=== PATIENT | male | born 1945 | race Caucasian/White ===

== ENCOUNTER 2017-07-21 11:09 | Inpatient (IN) | payer OTHER, MEDICARE ==
[~2017-07-21] VITALS: Ht 177.8 cm; Wt 83.0 kg
[~2017-07-21 11:09] MED LIST: ECOT500T PO; OXYC-360 PO; ROBA750T3 PO
[2017-07-21 12:00] VITALS: BP 143/76; PULSE 95; RESP 16; TEMP 98.1; O2SAT 98
[2017-07-21 12:16] LABS: AUTOMATED NEUTROPHIL # 9.5 TH/MM3 (1.8-7.7); BASOPHIL # 0.1 TH/MM3 (0-0.2); BASOPHIL % 0.7 % (0.0-2.0); EOSINOPHIL # 0.2 TH/MM3 (0-0.4); EOSINOPHIL % 1.7 % (0.0-4.0); HEMATOCRIT 38.1 % (39.0-51.0); HEMOGLOBIN 13.5 GM/DL (13.0-17.0); LYMPH % 14.9 % (9.0-44.0); LYMPHOCYTE # 1.8 TH/MM3 (1.0-4.8); MEAN CELL VOLUME 86.1 FL (80.0-100.0); MEAN CORPUSCULAR HEMOGLOBIN 30.6 PG (27.0-34.0); MEAN CORPUSCULAR HGB CONC 35.5 % (32.0-36.0); MEAN PLATELET VOLUME 7.9 FL (7.0-11.0); MONO % 5.3 % (0.0-8.0); MONOCYTE # 0.6 TH/MM3 (0-0.9); NEUT % 77.4 % (16.0-70.0); PLATELET COUNT 329 TH/MM3 (150-450); RED BLOOD COUNT 4.43 MIL/MM3 (4.50-5.90); RED CELL DISTRIBUTION WIDTH 13.9 % (11.6-17.2); WHITE BLOOD COUNT 12.3 TH/MM3 (4.0-11.0)
[2017-07-21 12:20] LABS: BILIRUBIN, URINE NEG (NEG); BLOOD, URINE NEG (NEG); GLUCOSE,URINE NEG (NEG); KETONE, URINE NEG (NEG); NITRITE,URINE NEG (NEG); SQUAMOUS EPITHELIAL CELL URINE <1 /hpf (0-5); URINE COLOR LIGHT-YELLOW (YELLW/STRAW); URINE LEUKOCYTE ESTERASE NEG (NEG)
[2017-07-21 12:35] LABS: ALBUMIN 4.8 GM/DL (3.4-5.0); ALT (GPT) 15 U/L (12-78); AST (GOT) 15 U/L (15-37); BICARBONATE 30.4 MEQ/L (21.0-32.0); BLOOD UREA NITROGEN 5 MG/DL (7-18); CALCIUM 9.8 MG/DL (8.5-10.1); CHLORIDE 96 MEQ/L (98-107); CREATININE 0.94 MG/DL (0.60-1.30); GLOMERULAR FILTRATION RATE 79 ML/MIN (>89); GLUCOSE,RANDOM 110 MG/DL (74-106); SODIUM (NA) 135 MEQ/L (136-145)
[2017-07-21 12:37] LABS: ALKALINE PHOSPHATASE 71 U/L (45-117); TOTAL BILIRUBIN ADULT 0.4 MG/DL (0.2-1.0)
--- NOTE | 2017-07-21 12:41 | PD ---
HPI Chief Complaint: Psychiatric Symptoms Time Seen by Provider: 12:41 Travel History International Travel<30 days: No Contact w/Intl Traveler<30days: No Traveled to known affect area: No History of Present Illness HPI 71-year-old male since the emergency department under Shepherd act for psychiatric evaluation. Patient presented to the [facility] acutely psychotic, states he has not slept in the last week. He states that he has significant neck pain and has not taken his Suboxone for the last 2-3 days. He believes he is opiate withdrawal. Denies any chest or tightness. No difficulty breathing. No nausea , vomiting, diarrhea. States that he just wants to sleep and if he can't he will "end it all.." PFSH Past Medical History Arthritis: Yes Anxiety: Yes (PTSD) Cardiovascular Problems: Yes Coronary Artery Disease: Yes Diabetes: Yes Hypertension: Yes Past Surgical History Joint Replacement: Yes Social History Alcohol Use: No Tobacco Use: No Substance Use: No Allergies-Medications (Allergen,Severity, Reaction): Coded Allergies: Sulfa (Sulfonamide Antibiotics) (Unverified Allergy, Intermediate, RASH, ) Reported Meds & Prescriptions Reported Meds & Active Scripts Active Reported Oxycontin (Oxycodone HCl) 15 Mg Tab 15 Mg PO TID Aspirin EC (Aspirin) 325 Mg Tabdr 325 Mg PO DAILY Ascorbic Acid 500 Mg Tab 500 Mg PO DAILY Trazodone (Trazodone HCl) 100 Mg Tablet 100 Mg PO HS Glucophage (Metformin HCl) 1,000 Mg Tab 1,000 Mg PO BIDPC Lisinopril 20 Mg Tab 20 Mg PO DAILY Ketoconazole Topical 2% Cream 1 Applic TOPICAL BID Duloxetine DR (Duloxetine HCl) 60 Mg Capdr 60 Mg PO DAILY Diclofenac Topical 1% Gel 1 Applic TOPICAL QID Clonidine (Clonidine HCl) 0.2 Mg Tab 0.2 Mg PO BID Theratears Unit-Dose Opth Gel (Carboxymethylcellulose Sodium Opth Gel) 1% Gel 1 Drop EACH EYE Q4H PRN Artificial Tears Opth Drops (Polyvinyl Alcohol) 1.4% Soln 1-2 Drop EACH EYE PRN PRN Aripiprazole 10 Mg Tab 10 Mg PO DAILY Amlodipine-Benazepril 5-10 Mg Cap 1 Cap PO DAILY Review of Systems Except as stated in HPI: all other systems reviewed are Neg Physical Exam Narrative GENERAL: Well-nourished elderly male patient, in no acute distress. SKIN: Focused skin assessment warm/dry. HEAD: Atraumatic. Normocephalic. EYES: Pupils equal and round. No scleral icterus. No injection or drainage. ENT: No nasal bleeding or discharge. Mucous membranes pink and moist. NECK: Trachea midline. No JVD. CARDIOVASCULAR: Regular rate and rhythm. RESPIRATORY: No accessory muscle use. Clear to auscultation. Breath sounds equal bilaterally. GASTROINTESTINAL: Abdomen soft, non-tender, nondistended. Hepatic and splenic margins not palpable. MUSCULOSKELETAL: No obvious deformities. No clubbing. No cyanosis. No edema. NEUROLOGICAL: Awake and alert. No obvious cranial nerve deficits. Motor grossly within normal limits. Normal speech. PSYCHIATRIC: Patient with flat affect, moderately depressed. Tearful at times. Data Data Last Documented VS Vital Signs Date Time Temp Pulse Resp B/P (MAP) Pulse Ox O2 Delivery O2 Flow Rate FiO2 07/21/17 18:05 97 18 158/84 (108) 99 Room Air 07/21/17 12:00 98.1 Orders Orders Complete Blood Count With Diff (07/21/17 11:44) Comprehensive Metabolic Panel (07/21/17 11:44) Urinalysis - C+S If Indicated (07/21/17 11:44) Psych Screen (07/21/17 11:44) Drug Screen, Random Urine (07/21/17 11:44) Alcohol (Ethanol) (07/21/17 11:44) Salicylates (Aspirin) (07/21/17 11:44) Lorazepam (Ativan) (07/21/17 13:15) Diet Regular Basic (07/21/17 Dinner) Labs Laboratory Tests Test 07/21/17 11:45 White Blood Count 12.3 TH/MM3 Red Blood Count 4.43 MIL/MM3 Hemoglobin 13.5 GM/DL Hematocrit 38.1 % Mean Corpuscular Volume 86.1 FL Mean Corpuscular Hemoglobin 30.6 PG Mean Corpuscular Hemoglobin Concent 35.5 % Red Cell Distribution Width 13.9 % Platelet Count 329 TH/MM3 Mean Platelet Volume 7.9 FL Neutrophils (%) (Auto) 77.4 % Lymphocytes (%) (Auto) 14.9 % Monocytes (%) (Auto) 5.3 % Eosinophils (%) (Auto) 1.7 % Basophils (%) (Auto) 0.7 % Neutrophils # (Auto) 9.5 TH/MM3 Lymphocytes # (Auto) 1.8 TH/MM3 Monocytes # (Auto) 0.6 TH/MM3 Eosinophils # (Auto) 0.2 TH/MM3 Basophils # (Auto) 0.1 TH/MM3 CBC Comment DIFF FINAL Differential Comment Urine Color LIGHT-YELLOW Urine Turbidity CLEAR Urine pH 7.0 Urine Specific [place] 1.005 Urine Protein NEG mg/dL Urine Glucose (UA) NEG mg/dL Urine Ketones NEG mg/dL Urine Occult Blood NEG Urine Nitrite NEG Urine Bilirubin NEG Urine Urobilinogen LESS THAN 2.0 MG/DL Urine Leukocyte Esterase NEG Urine WBC LESS THAN 1 /hpf Urine Squamous Epithelial Cells <1 /hpf Microscopic Urinalysis Comment CULT NOT INDICATED Blood Urea Nitrogen 5 MG/DL Creatinine 0.94 MG/DL Random Glucose 110 MG/DL Total Protein 8.0 GM/DL Albumin 4.8 GM/DL Calcium Level 9.8 MG/DL Alkaline Phosphatase 71 U/L Aspartate Amino Transf (AST/SGOT) 15 U/L Alanine Aminotransferase (ALT/SGPT) 15 U/L Total Bilirubin 0.4 MG/DL Sodium Level 135 MEQ/L Potassium Level 3.6 MEQ/L Chloride Level 96 MEQ/L Carbon Dioxide Level 30.4 MEQ/L Anion Gap 9 MEQ/L Estimat Glomerular Filtration Rate 79 ML/MIN Salicylates Level 11.3 MG/DL Urine Opiates Screen NEG Urine Barbiturates Screen NEG Urine Amphetamines Screen NEG Urine Benzodiazepines Screen NEG Urine Cocaine Screen NEG Urine Cannabinoids Screen NEG Ethyl Alcohol Level LESS THAN 3 MG/DL MDM Medical Decision Making Medical Screen Exam Complete: Yes Emergency Medical Condition: Yes Medical Record Reviewed: Yes Differential Diagnosis Mood Disorder versus personality disorder versus adjustment reaction disorder Narrative Course 71-year-old male presented to emergency department under Shepherd act for psychiatric evaluation. Patient appears without distress. He verbalizes been unable to sleep and frustrations with this. [facility] is [facility] that [facility]. He does not denies suicidal ideations but he does not discussed the plan. Laboratory Tests Test 07/21/17 11:45 White Blood Count 12.3 TH/MM3 Red Blood Count 4.43 MIL/MM3 Hemoglobin 13.5 GM/DL Hematocrit 38.1 % Mean Corpuscular Volume 86.1 FL Mean Corpuscular Hemoglobin 30.6 PG Mean Corpuscular Hemoglobin Concent 35.5 % Red Cell Distribution Width 13.9 % Platelet Count 329 TH/MM3 Mean Platelet Volume 7.9 FL Neutrophils (%) (Auto) 77.4 % Lymphocytes (%) (Auto) 14.9 % Monocytes (%) (Auto) 5.3 % Eosinophils (%) (Auto) 1.7 % Basophils (%) (Auto) 0.7 % Neutrophils # (Auto) 9.5 TH/MM3 Lymphocytes # (Auto) 1.8 TH/MM3 Monocytes # (Auto) 0.6 TH/MM3 Eosinophils # (Auto) 0.2 TH/MM3 Basophils # (Auto) 0.1 TH/MM3 CBC Comment DIFF FINAL Differential Comment Urine Color LIGHT-YELLOW Urine Turbidity CLEAR Urine pH 7.0 Urine Specific [place] 1.005 Urine Protein NEG mg/dL Urine Glucose (UA) NEG mg/dL Urine Ketones NEG mg/dL Urine Occult Blood NEG Urine Nitrite NEG Urine Bilirubin NEG Urine Urobilinogen LESS THAN 2.0 MG/DL Urine Leukocyte Esterase NEG Urine WBC LESS THAN 1 /hpf Urine Squamous Epithelial Cells <1 /hpf Microscopic Urinalysis Comment CULT NOT INDICATED Blood Urea Nitrogen 5 MG/DL Creatinine 0.94 MG/DL Random Glucose 110 MG/DL Total Protein 8.0 GM/DL Albumin 4.8 GM/DL Calcium Level 9.8 MG/DL Alkaline Phosphatase 71 U/L Aspartate Amino Transf (AST/SGOT) 15 U/L Alanine Aminotransferase (ALT/SGPT) 15 U/L Total Bilirubin 0.4 MG/DL Sodium Level 135 MEQ/L Potassium Level 3.6 MEQ/L Chloride Level 96 MEQ/L Carbon Dioxide Level 30.4 MEQ/L Anion Gap 9 MEQ/L Estimat Glomerular Filtration Rate 79 ML/MIN Salicylates Level 11.3 MG/DL Urine Opiates Screen NEG Urine Barbiturates Screen NEG Urine Amphetamines Screen NEG Urine Benzodiazepines Screen NEG Urine Cocaine Screen NEG Urine Cannabinoids Screen NEG Ethyl Alcohol Level LESS THAN 3 MG/DL Lab work is reviewed. Patient is medically cleared to undergo psychiatric screening for further evaluation and disposition. Mental health screening discussed with the patient. Psychiatric screen ordered. Diagnosis Primary Impression: Adjustment disorder Qualified Codes: F43.23 - Adjustment disorder with mixed anxiety and depressed mood Condition: Stable Rosangela Tovar Jul 21, 2017 12:41
[2017-07-21] MEDS ORDERED: LORazepam 1 MG TAB PO ONE (13:15)
[2017-07-21] MEDS ORDERED: THER1GEL EACH EYE (13:16)
[2017-07-21] MEDS ORDERED: DULO1CAP3 PO (13:16)
[2017-07-21] MEDS ORDERED: POLY99.0 EACH EYE (13:16)
[2017-07-21] MEDS ORDERED: CLON0.2T PO (13:16)
[2017-07-21] MEDS ORDERED: ASCO500T PO (13:16)
[2017-07-21] MEDS ORDERED: LISI-515 PO (13:16)
[2017-07-21] MEDS ORDERED: ASPI325T33 PO (13:16)
[2017-07-21] MEDS ORDERED: DICL1GEL7 TOPICAL (13:16)
[2017-07-21] MEDS ORDERED: AMLO5CAP PO (13:16)
[2017-07-21] MEDS ORDERED: ARIP1TAB12 PO (13:16)
[2017-07-21] MEDS ORDERED: GLUC1000 PO (13:16)
[2017-07-21] MEDS ORDERED: TRAZ100T10 PO (13:16)
[2017-07-21] MEDS ORDERED: KETO2CRE TOPICAL (13:16)
[2017-07-21] MEDS ORDERED: OXYC15TA55 PO (13:28)
[2017-07-21 18:05] VITALS: BP 158/84; PULSE 97; RESP 18; O2SAT 99
[2017-07-21 22:03] VITALS: BP 143/73; PULSE 80; RESP 18; TEMP 98.3; O2SAT 98
[2017-07-21] MEDS ORDERED: diphenhydrAMINE HCL 50 MG CAP PO PRN (23:00)
[2017-07-21] MEDS ORDERED: LORazepam 0.5 MG TAB age > 65 yrs PO PRN (23:15)
[2017-07-21] MEDS ORDERED: diphenhydrAMINE HCL 50 MG/ML VIAL - HS PRN IM (23:15)
[2017-07-21] MEDS ORDERED: diphenhydrAMINE HCL 50 MG CAP - HS PRN PO (23:15)
[2017-07-21] MEDS ORDERED: traZODone HCL 50 MG TAB PO PRN (23:15)
[2017-07-21] MEDS ORDERED: LORazepam 2 MG/ML VIAL - age > 65 yrs IM PRN (23:15)
[2017-07-21] MEDS ORDERED: hydrOXYzine HCL 50 MG TAB PO PRN (23:15)
[2017-07-21] MEDS ORDERED: diphenhydrAMINE HCL 50 MG/ML VIAL IM PRN (23:15)
[2017-07-21] MEDS ORDERED: BENZTROPINE MESYLATE 1 MG TAB PO PRN (23:15)
[2017-07-21] MEDS ORDERED: BENZTROPINE MESYLATE 2 MG/2 ML VIAL IM PRN (23:15)
[2017-07-21] MEDS ORDERED: MAGNESIUM HYDROXIDE SUSP 30 ML CUP PO PRN (23:15)
[2017-07-21 23:35] VITALS: BP 164/89; PULSE 96; RESP 16; TEMP 98.1; O2SAT 97
[2017-07-22] MEDS: ACETAMINOPHEN 325 MG TAB PO PRN ×2 (04:54→15:47)
[2017-07-22 05:40] VITALS: BP 163/88; PULSE 86; RESP 20; TEMP 97.5; O2SAT 100
[2017-07-22 08:39] LABS: BICARBONATE 27.8 MEQ/L (21.0-32.0); BLOOD UREA NITROGEN 3 MG/DL (7-18); CALCIUM 9.8 MG/DL (8.5-10.1); CHLORIDE 97 MEQ/L (98-107); CREATININE 0.73 MG/DL (0.60-1.30); GLOMERULAR FILTRATION RATE 106 ML/MIN (>89); GLUCOSE,RANDOM 118 MG/DL (74-106); SODIUM (NA) 135 MEQ/L (136-145)
[2017-07-22 08:40] LABS: CHOLESTEROL 142 MG/DL (120-200); TRIGLYCERIDES 78 MG/DL (42-150)
[2017-07-22 08:42] LABS: CHOLESTEROL/ HDL RATIO 2.51 RATIO; HDL CHOLESTEROL 56.4 MG/DL (40.0-60.0); LDL CHOLESTEROL 70 MG/DL (0-99)
[2017-07-22] MEDS ORDERED: LISINOPRIL 10 MG TAB PO SCH (09:00)
[2017-07-22] MEDS ORDERED: LISINOPRIL 20 MG TAB PO SCH (09:00)
[2017-07-22] MEDS ORDERED: ASPIRIN EC 325 MG TABEC PO SCH (09:00)
[2017-07-22] MEDS: KETOCONAZOLE 2% CREAM 15 GM TOPICAL SCH (09:00)
[2017-07-22 09:30] VITALS: BP 177/91
[2017-07-22] MEDS: metFORMIN HCL 500 MG TAB PO SCH ×2 (09:34→17:42)
[2017-07-22] MEDS: amLODIPine BESYLATE 5 MG TAB PO SCH (09:34)
[2017-07-22] MEDS: cloNIDine HCL 0.2 MG TAB PO SCH ×2 (09:34→20:41)
[2017-07-22] MEDS: ASCORBIC ACID 500 MG TAB PO SCH (09:35)
[2017-07-22] MEDS: NICOTINE 21 MG/24 HR PATCH T-DERMAL SCH (09:39)
[2017-07-22] MEDS ORDERED: ACETAMINOPHEN 325 MG TAB PO PRN (13:45)
[2017-07-22] MEDS ORDERED: [UNRECOGNIZED DRUG - OTHER] EACH EYE PRN (13:45)
[2017-07-22] MEDS ORDERED: FLUMAZENIL 0.5 MG/5 ML VIAL IV PUSH PRN (13:45)
[2017-07-22] MEDS ORDERED: LORazepam 2 MG TAB PO PRN (13:45)
[2017-07-22] MEDS ORDERED: LORazepam 2 MG/ML VIAL IV PUSH PRN ×4 (13:45)
--- NOTE | 2017-07-22 14:24 | HHI.HP ---
Provisional Diagnosis Admission Date Jul 21, 2017 at 22:38 [place] I. Chronic PTSD after experience f 43.12, history alcohol abuse Certification of Person's Competence To Provide Express and Informed Consent I have personally examined Will No , a person being served at [facility] on, Jul 22, 2017 14:06. Express and informed consent means consent voluntarily given in writing, by a competent person, after sufficient explanation and disclosure of the subject matter involved to enable the person to make a knowing and willful decision without any element of force, fraud, deceit, duress, or other form of constraint or coercion. This person is 18 years of age or older, is not now known to be incompetent to consent to treatment with a guardian advocate, and does not have a health care surrogate or proxy currently making medical treatment decisions. I have found this person to be one of the following: [] Competent to provide express and informed consent, as defined above, for voluntary admission to this facility and is competent to provide express and informed consent for treatment. He/she has the consistent capacity to make well reasoned, willful, and knowing decisions concerning his or her medical or mental health treatment. The person fully and consistently understands the purpose of the admission for examination/placement and is fully capable of personally exercising all rights assured [place] [] Incompetent to provide express and informed consent to voluntary admission, and this is incompetent to provide express and informed consent to treatment. The person must be transferred to involuntary status and a petition for a guardian advocate filed with the Circuit Court. [xxx] Refusing to provide express and informed consent to voluntary admission but is competent to provide express and informed consent for treatment. The person must be discharged or transferred to involuntary status. Form shall be completed within 24 hours of a person's arrival at the receiving facility and filed in the clinical record of each person: 1. Admitted on a voluntary basis 2. Permitted to provide express and informed consent to his/her own treatment 3. Allowed to transfer from involuntary to voluntary status 4. Prior to permitting a person to consent to his or her own treatment after having been previously found incompetent to consent to treatment. 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 that document reviewed and agreed with stating presents to clinic floridly psychotic and agitated states he has not slept or eaten in one week. The states "I'm going to go home and take all my blood pressure pills so I can go into a coma" he reports that he was prescribed Suboxone by and outside non-[facility] provider. Last dose was Wednesdays . He is drinking 3-4 beers every day is expressing visual and auditory hallucinations states "he is seeing soldiers in the house" and believes "there is a virus running through his body" patient seen screened in the ED urine toxicology negative blood alcohol level negative. 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 He states the problem is she has a slept in over one week. He did not mention voices or visions to me. Did not mention his alcohol use. He is vague about dreams flashbacks or eversion behaviors. Is markedly perseverative intense is she is rapid and pressured. While we are speaking his sister are brought joined us her phone number [phone]. She states she is concerned about the multiplication of medications he is taking and the need to get some type of a residential place to help him detox stabilizes medications be kept safe. Patient states he lives in a [facility] That is 100% disabled. He states he has been in the past that he has a daughter and a granddaughter. The sister states neither one is very high functioning. At this time patient does meet criteria for involuntary psychiatric hospitalization I'll do first opinion request second opinion. With the hospitalist consult was also. Because of this vague but important history of alcohol and opiate misuse no place patient on the [facility] protocol. We will discontinue his trazodone will start him on Zyprexa 10 mg at bedtime we'll continue his Cymbalta. And his other medical medications. Until the hospitalist can make her assessment. We also need to contact the [facility] system to see what other services this gentleman might be available for Review of Systems Constitutional: DENIES: Diaphoretic episodes, Fatigue, Fever, Weight gain, Weight loss, Chills, Dizziness, Change in appetite, Night Sweats Endocrine: DENIES: Heat/cold intolerance, Polydipsia, Polyuria, Polyphagia Eyes: DENIES: Blurred vision, Diplopia, Eye inflammation, Eye pain, Vision loss , Photosensitivity, Double Vision Ears, nose, mouth, throat: DENIES: Tinnitus, Hearing loss, Vertigo, Nasal discharge, Oral lesions, Throat pain, Hoarseness, Ear Pain, Running Nose, Epistaxis, Sinus Pain, Toothache, Odynophagia Respiratory: DENIES: Apneas, Cough, Snoring, Wheezing, Hemoptysis, Sputum production, Shortness of breath Cardiovascular: DENIES: Chest pain, Palpitations, Syncope, Dyspnea on Exertion , PND, Lower Extremity Edema, Orthopnea, Claudication Gastrointestinal: DENIES: Abdominal pain, Black stools, Bloody stools, Constipation, Diarrhea, Nausea, Vomiting, Difficulty Swallowing, Anorexia Genitourinary: DENIES: Sexual dysfunction, Urinary frequency, Urinary incontinence, Urgency, Hematuria, Dysuria, Nocturia, Penile Discharge, Testicular Pain, Testicular Swelling Musculoskeletal: DENIES: Joint pain, Muscle aches, Stiffness, Joint Swelling, Back pain, Neck pain Integumentary: DENIES: Abnormal pigmentation, Nail changes, Pruritus, Rash Hematologic/lymphatic: DENIES: Bruising, Lymphadenopathy Immunologic/allergic: DENIES: Eczema, Urticaria Neurologic: DENIES: Abnormal gait, Headache, Localized weakness, Paresthesias, Seizures, Speech Problems, Tremor, Poor Balance Psychiatric: COMPLAINS OF: Confusion (vague), Mood changes, Depression, Hallucinations, Suicidal Ideation Past Psych History Psychological trauma history 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 [place] Violence risk - others (6 mos) Low Violence risk - self (6 mos) Low to medium Substance Abuse History Drugs/Alcohol past 12 months History of alcohol and opiate abuse Past Family Social History Coded Allergies: Sulfa (Sulfonamide Antibiotics) (Unverified Allergy, Intermediate, RASH, ) Reported Medications Oxycodone ER (Oxycontin) 15 Mg Tab, 15 MG PO TID 07/21/[address] (Aspirin EC) 325 Mg Tabdr, 325 MG PO DAILY, TAB 0 Refills 07/21/17 Ascorbic Acid (Ascorbic Acid) 500 Mg Tab, 500 MG PO DAILY, TAB 2/14/18 Trazodone (Trazodone) 100 Mg Tablet, 100 MG PO HS for Control Depression, #30 TAB 0 Refills 07/21/17 Metformin (Glucophage) 1,000 Mg Tab, 1000 MG PO BIDPC for Blood Sugar Management , #60 TAB 0 Refills 07/21/17 Lisinopril (Lisinopril) 20 Mg Tab, 20 MG PO DAILY, #30 TAB 0 Refills 07/21/17 Ketoconazole Topical (Ketoconazole Topical) 2% Cream, 1 APPLIC TOPICAL BID for Fungal Infection, #15 GM 0 Refills 07/21/[address] (Duloxetine DR) 60 Mg Capdr, 60 MG PO DAILY, #30 CAP 0 Refills 07/21/17 Diclofenac Topical (Diclofenac Topical) 1% Gel, 1 APPLIC TOPICAL QID for Pain Management, #100 GM 0 Refills 07/21/17 Clonidine (Clonidine) 0.2 Mg Tab, 0.2 MG PO BID for Blood Pressure Management, # 60 TAB 0 Refills 07/21/17 Carboxymethylcellulose Sodium Opth Gel (Theratears Unit-Dose Opth Gel) 1% Gel, 1 DROP EACH EYE Q4H Y for DRY EYE, #1 BOX 0 Refills 07/21/17 Polyvinyl Alcohol Opth Drops (Artificial Tears Opth Drops) 1.4% Soln, 1-2 DROP EACH EYE PRN Y for DRY EYE, BOTTLE 0 Refills 07/21/17 Aripiprazole (Aripiprazole) 10 Mg Tab, 10 MG PO DAILY, #30 TAB 0 Refills 07/21/17 Amlodipine-Benazepril (Amlodipine-Benazepril) 5-10 Mg Cap, 1 CAP PO DAILY for Blood Pressure Management, #30 CAP 0 Refills 07/21/17 Current Medications Medications (Trade) Dose Ordered Sig/Smith Route Start Time Stop Time Status Last Admin (Ativan) 0.5 mg Q12H PRN PO 07/21/17 23:15 (Ativan Inj) 0.5 mg Q12H PRN IM 07/21/17 23:15 (Atarax) 50 mg Q6H PRN PO 07/21/17 23:15 (Benadryl) 50 mg Q6H PRN PO 07/21/17 23:00 (Benadryl Inj) 50 mg Q6H PRN IM 07/21/17 23:15 (Cogentin) 1 mg Q12H PRN PO 07/21/17 23:15 (Cogentin Inj) 1 mg Q12H PRN IM 07/21/17 23:15 (Benadryl) 50 mg HS PRN PO 07/21/17 23:15 (Benadryl Inj) 50 mg HS PRN IM 07/21/17 23:15 (Desyrel) 50 mg HS PRN PO 07/21/17 23:15 (Tylenol) 650 mg Q4H PRN PO 07/21/17 23:15 07/22/17 04:54 (Milk Of Magnesia Liq) 30 ml DAILY PRN PO 07/21/17 23:15 (Mag-Al Plus Susp Liq) 30 ml Q6H PRN PO 07/21/17 23:15 (Habitrol 21 Mg Patch.24 Hr) 1 patch DAILY T-DERMAL 07/22/17 09:00 07/22/17 09:39 Miscellaneous Information 1 HS T-DERMAL 07/22/17 21:00 (Norvasc) 5 mg DAILY PO 07/21/17 23:15 07/22/17 09:34 (Prinivil) 10 mg DAILY PO 07/22/17 09:00 07/22/17 09:34 (Catapres) 0.2 mg BID PO 07/22/17 09:00 07/22/17 09:34 (Nizoral 2% Cream) APPLY TO AFFECTED AREA... DAILY TOPICAL 07/22/17 09:00 (Prinivil) 20 mg DAILY PO 07/22/17 09:00 07/22/17 09:35 (Glucophage) 1,000 mg BIDPC PO 07/22/17 09:00 07/22/17 09:34 (Vitamin C) 500 mg DAILY PO 07/22/17 09:00 07/22/17 09:35 (Ecotrin Ec) 325 mg DAILY PO 07/22/17 09:00 07/22/17 09:34 Family Psych History Unknown at this time Social History She lives alone in a cabin in [place] [facility], alone since his dog Patient's Strengths (min. 2) Patient verbal [facility] appears to have supportive family Physical Exam Patient seen screen in ED exam reviewed and agreed with. Patient sitting the dayroom in no acute distress he is in no respiratory distress. There is no complaints abdominal pain. Patient moves all 4 extremities at times somewhat weakly using a walker Vital Signs Vital Signs Date Time Temp Pulse Resp B/P (MAP) Pulse Ox O2 Delivery O2 Flow Rate FiO2 07/22/17 09:30 177/91 (119) 07/22/17 05:40 97.5 86 20 100 07/21/17 22:03 Room Air Lab Results Test 07/22/17 07:25 Blood Urea Nitrogen 3 MG/DL Creatinine 0.73 MG/DL Random Glucose 118 MG/DL Calcium Level 9.8 MG/DL Sodium Level 135 MEQ/L Potassium Level 3.5 MEQ/L Chloride Level 97 MEQ/L Carbon Dioxide Level 27.8 MEQ/L Anion Gap 10 MEQ/L Estimat Glomerular Filtration Rate 106 ML/MIN Triglycerides Level 78 MG/DL Cholesterol Level 142 MG/DL LDL Cholesterol 70 MG/DL HDL Cholesterol 56.4 MG/DL Cholesterol/HDL Ratio 2.51 RATIO Mental Status Examination Appearance: Appropriate Consciousness: Alert Orientation: Person, Place, Date/Time, Situation Motor Activity: Other (patient uses a walker) Speech: Pressured, Rapid Language: Adequate Fund of Knowledge: Adequate Attention and Concentration: Other (fair) Mood: Sad, Irritable Affect: Other (increase range and intensity) Thought Process & Associations: Circumstantial, Disorganized, Tangential Thought Content: Bizarre thinking Hallucination Type: Auditory, Visual Delusion Type: Bizarre Suicidal Ideation: No (denies to me) Suicidal Plan: No Suicidal Intention: No Homicidal Ideation: No Homicidal Plan: No Homicidal Intention: No Insight: Poor Judgment: Poor Assessment & Plan Problem List: (1) 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 However I feel he does have capacity to sign for his medications. With a hospitalist consult was. We'll do medication changes as mentioned above. We do need to contact the MD system to find a more [place] is patient and perhaps also getfrom patient's sister Discharge Planning Perhaps the MD facility might benefit this Request HC Surrog/Guard Advoc?: No Segun Gardner MD Jul 22, 2017 14:24
[2017-07-22] MEDS: ALUMINUM/MAGNESIUM/SIMETH 30 ML CUP PO PRN (15:48)
[2017-07-22 16:00] VITALS: BP 100/76; PULSE 97; RESP 16; TEMP 98.2; O2SAT 100
--- NOTE | 2017-07-22 16:35 | PD.CONS ---
HPI Service [facility] District[facility] Consult Requested By Psychiatry team , Dr. Bloom Reason for Consult Management of medical condition Primary Care Physician Unknown Diagnoses: History of Present Illness Patient is a 71-year-old old male with primary medical history of HTN, DM who came into the hospital under Shepherd act for psychiatric evaluation. Per review of records, patient presented to the [place] acutely psychotic, states he has not slept in the last week. He is now admitted to inpatient psychiatry unit for further evaluation. Consulted for medical management. Patient seen and examined today. Reports he has neck pain and cervical pain. Reports spasms in that his head is about to explode. Patient states he does this when he gets really angry and anxious. Pain is rated 10 over 10, unrelieved by Tylenol, radiating from the neck to the spine to his head, aggravated by anxiety and feeling of anger. Patient is concentrating on his pain and unable to answer most of his medical problems. He deviates and they' ve reports attention to where he lives or where her mother lives. Very irritable. Patient states that he smokes one pack per day and if he can get out of the door he will start smoking right away. Denies shortness of breath or dyspnea, denies nausea, vomiting, diarrhea. Review of Systems ROS Limitations: Poor Historian Past Family Social History Allergies: Coded Allergies: Sulfa (Sulfonamide Antibiotics) (Unverified Allergy, Intermediate, RASH, ) Past Medical History Per review of records Arthritis PTSD Anxiety HTN DM Past Surgical History Patient denies any surgeries Reported Medications Reported Meds & Active Scripts Active Reported Oxycontin (Oxycodone HCl) 15 Mg Tab 15 Mg PO TID Aspirin EC (Aspirin) 325 Mg Tabdr 325 Mg PO DAILY Ascorbic Acid 500 Mg Tab 500 Mg PO DAILY Trazodone (Trazodone HCl) 100 Mg Tablet 100 Mg PO HS Glucophage (Metformin HCl) 1,000 Mg Tab 1,000 Mg PO BIDPC Lisinopril 20 Mg Tab 20 Mg PO DAILY Ketoconazole Topical 2% Cream 1 Applic TOPICAL BID Duloxetine DR (Duloxetine HCl) 60 Mg Capdr 60 Mg PO DAILY Diclofenac Topical 1% Gel 1 Applic TOPICAL QID Clonidine (Clonidine HCl) 0.2 Mg Tab 0.2 Mg PO BID Theratears Unit-Dose Opth Gel (Carboxymethylcellulose Sodium Opth Gel) 1% Gel 1 Drop EACH EYE Q4H PRN Artificial Tears Opth Drops (Polyvinyl Alcohol) 1.4% Soln 1-2 Drop EACH EYE PRN PRN Aripiprazole 10 Mg Tab 10 Mg PO DAILY Amlodipine-Benazepril 5-10 Mg Cap 1 Cap PO DAILY Active Ordered Medications Current Medications Medications (Trade) Dose Ordered Sig/Smith Route Start Time Stop Time Status Last Admin (Atarax) 50 mg Q6H PRN PO 07/21/17 23:15 (Cogentin) 1 mg Q12H PRN PO 07/21/17 23:15 (Benadryl) 50 mg HS PRN PO 07/21/17 23:15 (Tylenol) 650 mg Q4H PRN PO 07/21/17 23:15 07/22/17 15:47 (Milk Of Magnesia Liq) 30 ml DAILY PRN PO 07/21/17 23:15 07/22/17 15:48 (Mag-Al Plus Susp Liq) 30 ml Q6H PRN PO 07/21/17 23:15 07/22/17 15:48 (Habitrol 21 Mg Patch.24 Hr) 1 patch DAILY T-DERMAL 07/22/17 09:00 07/22/17 09:39 Miscellaneous Information 1 HS T-DERMAL 07/22/17 21:00 (Norvasc) 5 mg DAILY PO 07/21/17 23:15 07/22/17 09:34 (Prinivil) 10 mg DAILY PO 07/22/17 09:00 07/22/17 09:34 (Catapres) 0.2 mg BID PO 07/22/17 09:00 07/22/17 09:34 (Nizoral 2% Cream) APPLY TO AFFECTED AREA... DAILY TOPICAL 07/22/17 09:00 (Glucophage) 1,000 mg BIDPC PO 07/22/17 09:00 07/22/17 17:42 (Vitamin C) 500 mg DAILY PO 07/22/17 09:00 07/22/17 09:35 (Ecotrin Ec) 325 mg DAILY PO 07/22/17 09:00 07/22/17 09:34 (Romazicon Inj) 0.2 mg Q1M PRN IV PUSH 07/22/17 13:45 (Ativan) 1 mg Q4H PRN PO 07/22/17 13:45 (Ativan Inj) 1 mg Q4H PRN IV PUSH 07/22/17 13:45 (Ativan) 2 mg Q2H PRN PO 07/22/17 13:45 (Ativan Inj) 2 mg Q2H PRN IV PUSH 07/22/17 13:45 (Ativan Inj) 2 mg Q1H PRN IV PUSH 07/22/17 13:45 (Ativan Inj) 2 mg Q15M PRN IV PUSH 07/22/17 13:45 (ZyPREXA) 10 mg HS PO 07/22/17 21:00 (Cymbalta Dr) 60 mg DAILY PO 07/23/17 09:00 Patient Own Medication PT OWN MED: CARBOXYMETHYCELLULOSE... Q4H PRN EACH EYE 07/22/17 13:45 Future Hold Family History States mother of cancer Father had a heart attack Social History States [place] [facility], [place]. Denies alcohol use Smokes one pack per day current day smoker Denies illicit drug use Physical Exam Vital Signs Vital Signs Date Time Temp Pulse Resp B/P (MAP) Pulse Ox O2 Delivery O2 Flow Rate FiO2 07/22/17 09:30 177/91 (119) 07/22/17 05:40 97.5 86 20 163/88 (113) 100 07/21/17 23:35 98.1 96 16 164/89 (114) 97 07/21/17 22:48 07/21/17 22:03 98.3 80 18 143/73 (96) 98 Room Air 07/21/17 18:05 97 18 158/84 (108) 99 Room Air Physical Exam GENERAL: This is a well-nourished, well-developed patient, in no apparent distress. SKIN: Cool and dry. HEAD: Atraumatic. Normocephalic. No temporal or scalp tenderness. EYES: Pupils equal round and reactive. Extraocular motions intact. No scleral icterus. No injection or drainage. ENT: Nose without bleeding. Throat without erythema. Uvula midline. Airway patent. NECK: Trachea midline. CARDIOVASCULAR: Regular rate and rhythm with 2/6 murmurs. No gallops, or rubs. RESPIRATORY: Diminished bases No wheezes, rales, or rhonchi. GASTROINTESTINAL: Abdomen soft, non-tender, nondistended. Bowel sounds ACTIVE 4 MUSCULOSKELETAL: Extremities without clubbing, cyanosis, or edema. NEUROLOGICAL: Awake and alert. Irritable. Cranial nerves II through XII intact. Motor and sensory grossly within normal limits. Normal speech. Laboratory Laboratory Tests Test 07/22/17 07:25 Blood Urea Nitrogen 3 Creatinine 0.73 Random Glucose 118 Calcium Level 9.8 Sodium Level 135 Potassium Level 3.5 Chloride Level 97 Carbon Dioxide Level 27.8 Anion Gap 10 Estimat Glomerular Filtration Rate 106 Triglycerides Level 78 Cholesterol Level 142 LDL Cholesterol 70 HDL Cholesterol 56.4 Cholesterol/HDL Ratio 2.51 Result Diagram: 07/21/17 1145 07/22/17 0725 Assessment and Plan Problem List: (1) HTN (hypertension) ICD Code: I10 - Essential (primary) hypertension (2) DM type 2 (diabetes mellitus, type 2) ICD Code: E11.9 - Type 2 diabetes mellitus without complications (3) Tobacco abuse ICD Code: Z72.0 - Tobacco use (4) Chronic post-traumatic stress disorder (PTSD) after combat ICD Code: F43.12 - Post-traumatic stress disorder, chronic (5) Adjustment disorder ICD Code: F43.20 - Adjustment disorder, unspecified Status: Acute Assessment and Plan Patient is a 71-year-old old male with primary medical history of HTN, DM who came into the hospital under Shepherd act for psychiatric evaluation. Per review of records, [place], states he has not slept in the last week. He is now admitted to inpatient psychiatry unit for further evaluation. Consulted for medical management. PTSD, anxiety - Managed by psychiatry team HTN, uncontrolled - Continue amlodipine 5 mg daily, clonidine 0.2 mg twice a day, lisinopril 10 mg daily - increased to 20 mg daily - Patient on aspirin 325 mg, unable to discuss purpose - Will decrease dose to 81mg - Lipid profile - Elevated BP possibly secondary to pain, we'll adjust medication Neck pain, chronic pain - Patient has been on oxycodone 15 mg 3 times a day and reports Suboxone use with the ED physician that he hasn't been taken for 2-3 days - Monitor for withdrawals - Will give patient baclofen for muscle spasms, and Naprosyn as needed until all his medications are completely verified - CIWA withdrawals DM 2 - Continue metformin 1000mg twice a day - hemoglobin A1c 6.0 - Continue to monitor Tobacco abuse Alcohol abuse - Counseled - Nicotine patch DVT prop, ambulatory Code Status Full code Discussed Condition With Patient, nursing Problem Qualifiers (1) Adjustment disorder: Qualified Codes: F43.23 - Adjustment disorder with mixed anxiety and depressed mood Kerri Aparicio Jul 22, 2017 16:35
[2017-07-22] MEDS ORDERED: metFORMIN HCL 500 MG TAB PO SCH (18:00)
[2017-07-22] MEDS: OLANZapine 10 MG TAB PO SCH (20:41)
[2017-07-22] MEDS: FAMOTIDINE 20 MG TAB PO SCH (20:41)
[2017-07-22] MEDS: REMOVE OLD NICOTINE PATCH T-DERMAL SCH (21:00)
[2017-07-22] MEDS ORDERED: KETOCONAZOLE 2% CREAM 15 GM TOPICAL SCH (21:00)
[2017-07-22] MEDS: BACLOFEN 10 MG TAB PO SCH (21:25)
[2017-07-23] MEDS: BACLOFEN 10 MG TAB PO SCH ×3 (05:43→20:51)
[2017-07-23] MEDS: ACETAMINOPHEN 325 MG TAB PO PRN ×2 (05:43→20:53)
[2017-07-23 06:30] VITALS: BP 168/85; PULSE 100; RESP 17; TEMP 98.1
[2017-07-23] MEDS: ASPIRIN EC 325 MG TABEC PO SCH (08:18)
[2017-07-23] MEDS: metFORMIN HCL 500 MG TAB PO SCH ×2 (08:18→16:49)
[2017-07-23] MEDS: FAMOTIDINE 20 MG TAB PO SCH ×2 (08:18→20:51)
[2017-07-23] MEDS: ASCORBIC ACID 500 MG TAB PO SCH (08:18)
[2017-07-23] MEDS: DULoxetine HCl DR 60 MG CAP PO SCH (08:18)
[2017-07-23] MEDS: amLODIPine BESYLATE 5 MG TAB PO SCH (08:18)
[2017-07-23] MEDS: KETOCONAZOLE 2% CREAM 15 GM TOPICAL SCH (08:19)
[2017-07-23] MEDS: LISINOPRIL 10 MG TAB PO SCH (08:19)
[2017-07-23] MEDS: NICOTINE 21 MG/24 HR PATCH T-DERMAL SCH (08:19)
[2017-07-23] MEDS: cloNIDine HCL 0.2 MG TAB PO SCH ×2 (08:19→20:51)
[2017-07-23] MEDS ORDERED: LISINOPRIL 20 MG TAB PO SCH (09:00)
[2017-07-23] MEDS ORDERED: NICOTINE 21 MG/24 HR PATCH T-DERMAL SCH (09:00)
[2017-07-23] MEDS ORDERED: ASCORBIC ACID 500 MG TAB PO SCH (09:00)
--- NOTE | 2017-07-23 09:48 | PD.PSY.CON ---
Provisional Diagnosis Admission Date Jul 21, 2017 at 22:38 [place] I. 1. Brief psychotic disorder 2. History of PTSD 3. History of substance use issues [place] II. Deferred History of Present Illness Service Psychiatry Consult Requested By Dr. Gardner Reason for Consult Second opinion for involuntary psychiatric hospitalization Primary Care Physician Unknown HPI From Dr. 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 that document reviewed and agreed with stating presents to clinic floridly psychotic and agitated states he has not slept or eaten in one week. The states "I'm going to go home and take all my blood pressure pills so I can go into a coma" he reports that he was prescribed Suboxone by and outside non-[facility] provider. Last dose was Wednesday. He is drinking 3-4 beers every day is expressing visual and auditory hallucinations states "he is seeing soldiers in the house" and believes "there is a virus running through his body" patient seen screened in the ED urine toxicology negative blood alcohol level negative. 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 He states the problem is she has a slept in over one week. He did not mention voices or visions to me. Did not mention his alcohol use. He is vague about dreams flashbacks or eversion behaviors. Is markedly perseverative intense is she is rapid and pressured. While we are speaking his sister are brought joined us her phone number [phone]. She states she is concerned about the multiplication of medications he is taking and the need to get some type of a residential place to help him detox stabilizes medications be kept safe. Patient states [place] [facility] [place] That is 100% disabled. He states he has been in the past that he has a daughter and a granddaughter. The sister states neither one is very high functioning. At this time patient does meet criteria for involuntary psychiatric hospitalization I'll do first opinion request second opinion. With the hospitalist consult was also. Because of this vague but important history of alcohol and opiate misuse no place patient on the ciwa protocol. We will discontinue his trazodone will start him on Zyprexa 10 mg at bedtime we'll continue his Cymbalta. And his other medical medications. Until the hospitalist can make her assessment. We also need to contact the [place] system to see what other services this gentleman might be available for On my examination today, 07/23: Patient seen and examined with nurse. Chart reviewed. Case discussed with nursing staff. On my examination today, the patient is quite paranoid, somewhat limiting the history. When I endeavor to ask about aspects of his history, for example, he tells me "it's all on the record" and "the medical record has it all." Towards the end of our interaction he will only repeat "My name is Chaitanya Lehman, social security number [id number]." Patient says that he came into the [place] clinic because he was in opiate withdrawal. He denies any SI or HI but seems unreliable to contract for safety. He complains of poor sleep. He refuses any sort of mental status testing. Psychiatric interview is limited by paranoia as I said. No physical complaints. Past psychiatric history: The patient reports that he follows with Dr. Richardson. He does admit to previous psychiatric admissions but will not tell me where or when. He denies any history of suicide attempts. He won't tell me what his psychiatric diagnosis is, if any. Family history: Patient declines to respond saying only "my name is Chaitanya Lehman." Chemical dependency history: The patient reports a history of opiate use issues , and I see from Dr. Gardner's note that he may have a history of alcohol use problems. Social history: The patient reports that he had been living alone in the [facility]. He had previously had a pet dog who he had to put down. He has a daughter, age 45, who reportedly works for a business called [employer]." Review of Systems ROS Limitations: Psychotic, Poor Historian Except as stated in HPI: all other systems reviewed are Neg Past Family Social History Coded Allergies: Sulfa (Sulfonamide Antibiotics) (Unverified Allergy, Intermediate, RASH, ) Past Medical History see electronic medical record Reported Medications Oxycodone ER (Oxycontin) 15 Mg Tab, 15 MG PO TID 07/21/[address] (Aspirin EC) 325 Mg Tabdr, 325 MG PO DAILY, TAB 0 Refills 07/21/17 Ascorbic Acid (Ascorbic Acid) 500 Mg Tab, 500 MG PO DAILY, TAB 07/21/17 Trazodone (Trazodone) 100 Mg Tablet, 100 MG PO HS for Control Depression, #30 TAB 0 Refills 07/21/17 Metformin (Glucophage) 1,000 Mg Tab, 1000 MG PO BIDPC for Blood Sugar Management , #60 TAB 0 Refills 07/21/17 Lisinopril (Lisinopril) 20 Mg Tab, 20 MG PO DAILY, #30 TAB 0 Refills 07/21/17 Ketoconazole Topical (Ketoconazole Topical) 2% Cream, 1 APPLIC TOPICAL BID for Fungal Infection, #15 GM 0 Refills 07/21/[address] (Duloxetine DR) 60 Mg Capdr, 60 MG PO DAILY, #30 CAP 0 Refills 07/21/17 Diclofenac Topical (Diclofenac Topical) 1% Gel, 1 APPLIC TOPICAL QID for Pain Management, #100 GM 0 Refills 07/21/17 Clonidine (Clonidine) 0.2 Mg Tab, 0.2 MG PO BID for Blood Pressure Management, # 60 TAB 0 Refills 07/21/17 Carboxymethylcellulose Sodium Opth Gel (Theratears Unit-Dose Opth Gel) 1% Gel, 1 DROP EACH EYE Q4H Y for DRY EYE, #1 BOX 0 Refills 07/21/17 Polyvinyl Alcohol Opth Drops (Artificial Tears Opth Drops) 1.4% Soln, 1-2 DROP EACH EYE PRN Y for DRY EYE, BOTTLE 0 Refills 07/21/17 Aripiprazole (Aripiprazole) 10 Mg Tab, 10 MG PO DAILY, #30 TAB 0 Refills 07/21/17 Amlodipine-Benazepril (Amlodipine-Benazepril) 5-10 Mg Cap, 1 CAP PO DAILY for Blood Pressure Management, #30 CAP 0 Refills 07/21/17 Current Medications Medications (Trade) Dose Ordered Sig/Smith Route Start Time Stop Time Status Last Admin (Atarax) 50 mg Q6H PRN PO 07/21/17 23:15 07/22/17 21:25 (Cogentin) 1 mg Q12H PRN PO 07/21/17 23:15 (Benadryl) 50 mg HS PRN PO 07/21/17 23:15 (Tylenol) 650 mg Q4H PRN PO 07/21/17 23:15 07/23/17 05:43 (Milk Of Magnesia Liq) 30 ml DAILY PRN PO 07/21/17 23:15 07/22/17 15:48 (Mag-Al Plus Susp Liq) 30 ml Q6H PRN PO 07/21/17 23:15 07/22/17 15:48 (Habitrol 21 Mg Patch.24 Hr) 1 patch DAILY T-DERMAL 07/22/17 09:00 07/23/17 08:19 Miscellaneous Information 1 HS T-DERMAL 07/22/17 21:00 (Norvasc) 5 mg DAILY PO 07/21/17 23:15 07/23/17 08:18 (Catapres) 0.2 mg BID PO 07/22/17 09:00 07/23/17 08:19 (Nizoral 2% Cream) APPLY TO AFFECTED AREA... DAILY TOPICAL 07/22/17 09:00 07/23/17 08:19 (Glucophage) 1,000 mg BIDPC PO 07/22/17 09:00 07/23/17 08:18 (Vitamin C) 500 mg DAILY PO 07/22/17 09:00 07/23/17 08:18 (Romazicon Inj) 0.2 mg Q1M PRN IV PUSH 07/22/17 13:45 (Ativan) 1 mg Q4H PRN PO 07/22/17 13:45 (Ativan Inj) 1 mg Q4H PRN IV PUSH 07/22/17 13:45 (Ativan) 2 mg Q2H PRN PO 07/22/17 13:45 (Ativan Inj) 2 mg Q2H PRN IV PUSH 07/22/17 13:45 (Ativan Inj) 2 mg Q1H PRN IV PUSH 07/22/17 13:45 (Ativan Inj) 2 mg Q15M PRN IV PUSH 07/22/17 13:45 (ZyPREXA) 10 mg HS PO 07/22/17 21:00 07/22/17 20:41 (Cymbalta Dr) 60 mg DAILY PO 07/23/17 09:00 07/23/17 08:18 Patient Own Medication PT OWN MED: CARBOXYMETHYCELLULOSE... Q4H PRN EACH EYE 07/22/17 13:45 Future Hold (Ecotrin Ec) 81 mg DAILY PO 07/23/17 09:00 07/23/17 08:18 (Lioresal) 10 mg Q8HR PO 07/22/17 22:00 07/23/17 05:43 (Naprosyn) 250 mg Q6H PRN PO 07/22/17 18:30 (Pepcid) 20 mg BID PO 07/22/17 21:00 07/23/17 08:18 (Prinivil) 10 mg DAILY PO 07/23/17 09:00 07/23/17 08:19 Patient's Strengths (min. 2) In a monitored setting. Verbally fluent. Physical Exam Physical exam completed by hospitalist [employer] ax consultant. On my examination today, the patient appears to be in no acute physical distress. No motor abnormalities noted. Labs and vitals reviewed: Vital Signs Vital Signs Date Time Temp Pulse Resp B/P (MAP) Pulse Ox O2 Delivery O2 Flow Rate FiO2 07/23/17 06:30 98.1 100 17 168/85 (112) 07/22/17 16:00 100 07/21/17 22:03 Room Air Lab Results Item Value Date Time White Blood Count 12.3 TH/MM3 H 07/21/17 1145 Hemoglobin 13.5 GM/DL 07/21/17 1145 Platelet Count 329 TH/MM3 07/21/17 1145 Sodium Level 135 MEQ/L L 07/22/17 0725 Potassium Level 3.5 MEQ/L 07/22/17 0725 Chloride Level 97 MEQ/L L 07/22/17 0725 Carbon Dioxide Level 27.8 MEQ/L 07/22/17 0725 Blood Urea Nitrogen 3 MG/DL L 07/22/17 0725 Creatinine 0.73 MG/DL 07/22/17 0725 Estimat Glomerular Filtration Rate 106 ML/MIN 07/22/17 0725 Hemoglobin A1c 6.0 % 07/22/17 0725 Aspartate Amino Transf (AST/SGOT) 15 U/L 07/21/17 1145 Alanine Aminotransferase (ALT/SGPT) 15 U/L 07/21/17 1145 Alkaline Phosphatase 71 U/L 07/21/17 1145 Urine Opiates Screen NEG 07/21/17 1145 Urine Barbiturates Screen NEG 07/21/17 1145 Urine Amphetamines Screen NEG 07/21/17 1145 Urine Benzodiazepines Screen NEG 07/21/17 1145 Urine Cocaine Screen NEG 07/21/17 1145 Urine Cannabinoids Screen NEG 07/21/17 1145 Ethyl Alcohol Level LESS THAN 3 MG/DL 07/21/17 1145 Mental Status Examination Appearance: Appropriate Consciousness: Alert Orientation: Person (refuses further mental status testing) Motor Activity: Other (no motor abnormalities noted) Speech: Unremarkable Language: Adequate Fund of Knowledge: Adequate Attention and Concentration: Easily Distracted Mood: Irritable Affect: Other (restricted) Thought Process & Associations: Circumstantial Thought Content: Delusional Hallucination Type: None (denies AVH) Delusion Type: Paranoid Suicidal Ideation: No Suicidal Plan: No Suicidal Intention: No Homicidal Ideation: No Homicidal Plan: No Homicidal Intention: No Insight: Poor Judgment: Poor Assessment & Plan Problem List: (1) Brief psychotic disorder ICD Codes: F23 - Brief psychotic disorder (2) Chronic post-traumatic stress disorder (PTSD) after combat ICD Codes: F43.12 - Post-traumatic stress disorder, chronic (3) History of substance use disorder ICD Codes: Z87.898 - Personal history of other specified conditions Assessment & Plan Given the circumstances of the patient's presentation here and his presentation on my examination today, I concur with Dr. Gardner that the patient meets criteria for involuntary psychiatric hospitalization under the Shepherd act. I have completed the second opinion paperwork. Further care as per Dr. Gardner. Thank you very much for this consultation. Signing off. Avel Wilson MD Jul 23, 2017 09:48
[2017-07-23] MEDS: LORazepam 1 MG TAB PO PRN ×2 (10:05→13:55)
--- NOTE | 2017-07-23 15:48 | HHI.PYPN ---
Subjective Remarks Patient, chart review, discussed patient with nurse. But quite is irritable. We did meet with patient's sister and a neighbor who is his caregiver. They're concerned about behaviors his ability to live independently, is chronic pain issues and possible cognitive deterioration. When patient seen by me he was somewhat calmer today a did explain to him her visit with his sister. And that they do wish that we address also his memory issues and irritability. I told him that we will be having a neurology consult to assess this is willing to do that. Patient otherwise no significant behavioral problems for now continue treatment Review of Systems Except as stated in HPI: all other systems reviewed are Neg Mental Status Examination Appearance: Appropriate Consciousness: Alert Orientation: Person (refuses further mental status testing) Motor Activity: Other (no motor abnormalities noted) Speech: Unremarkable Language: Adequate Fund of Knowledge: Adequate Attention and Concentration: Easily Distracted Mood: Irritable Affect: Other (restricted) Thought Process & Associations: Circumstantial Thought Content: Delusional Hallucination Type: None (denies AVH) Delusion Type: Paranoid Suicidal Ideation: No Suicidal Plan: No Suicidal Intention: No Homicidal Ideation: No Homicidal Plan: No Homicidal Intention: No Insight: Poor Judgment: Poor Results Vitals/IOs Vital Signs Date Time Temp Pulse Resp B/P (MAP) Pulse Ox O2 Delivery O2 Flow Rate FiO2 07/23/17 06:30 98.1 100 17 168/85 (112) 07/22/17 16:00 100 07/21/17 22:03 Room Air Intake and Output 07/23/17 07/23/17 07/24/17 08:00 16:00 00:00 Intake Total 480 ml Balance 480 ml Assessment & Plan Problem List: (1) Brief psychotic disorder ICD Codes: F23 - Brief psychotic disorder (2) Chronic post-traumatic stress disorder (PTSD) after combat ICD Codes: F43.12 - Post-traumatic stress disorder, chronic (3) History of substance use disorder ICD Codes: Z87.898 - Personal history of other specified conditions Assessment & Plan Estimated LOS: days patient continues angry irritable and confused. Also softer today. Will Get neurology consult. Justification for Cont. Inpt. At this time patient would decompensated placed in a lower level of care Discharge Planning Hopeful finding appropriate placement for this gentleman Segun Gardner MD Jul 23, 2017 15:48
--- NOTE | 2017-07-23 19:06 | HHI.PR ---
Subjective Remarks Follow-up visit HTN, DM, cervical pain. Patient seen and examined today sitting in a chair. Reports he is doing a lot better. States that his pain is not tolerable he is able to move his neck without any difficulty. Denies chest pain, palpitations, headaches, dizziness. Denies any abdominal pain, nausea, vomiting, diarrhea. Patient appears calmer. Objective Vitals Vital Signs Date Time Temp Pulse Resp B/P (MAP) Pulse Ox O2 Delivery O2 Flow Rate FiO2 07/23/17 06:30 98.1 100 17 168/85 (112) I/O 07/22/17 07/22/17 07/22/17 07/23/17 07/23/17 07/23/17 07:00 15:00 23:00 07:00 15:00 23:00 Intake Total 360 ml 360 ml 570 ml 480 ml 720 ml Balance 360 ml 360 ml 570 ml 480 ml 720 ml Intake Oral 360 ml 360 ml 570 ml 480 ml 720 ml # Voids 3 Result Diagram: 07/21/17 1145 07/22/17 0725 Objective Remarks GENERAL: This is a well-nourished, well-developed patient, in no apparent distress. SKIN: Warm and dry. HEENT: Normocephalic. Pupils equal round and reactive. Nose without bleeding. Airway patent. NECK: Trachea midline. CARDIOVASCULAR: Regular rate and rhythm without murmurs, gallops, or rubs. RESPIRATORY: Diminished bases. No wheezes, rales, or rhonchi. GASTROINTESTINAL: Abdomen soft, non-tender, nondistended. Bowel Sounds normoactive x4. MUSCULOSKELETAL: Extremities without clubbing, cyanosis, or edema. NEUROLOGICAL: Awake and alert. Oriented to place, person. Moves all extremities. Normal speech. A/P Problem List: (1) HTN (hypertension) ICD Code: I10 - Essential (primary) hypertension (2) DM type 2 (diabetes mellitus, type 2) ICD Code: E11.9 - Type 2 diabetes mellitus without complications (3) Tobacco abuse ICD Code: Z72.0 - Tobacco use (4) Chronic post-traumatic stress disorder (PTSD) after combat ICD Code: F43.12 - Post-traumatic stress disorder, chronic (5) Adjustment disorder ICD Code: F43.20 - Adjustment disorder, unspecified Status: Acute Assessment and Plan Patient is a 71-year-old old male with primary medical history of HTN, DM who came into the hospital under [facility] act for psychiatric evaluation. Per review of records, patient presented to the [place] acutely psychotic, states he has not slept in the last week. He is now admitted to inpatient psychiatry unit for further evaluation. Consulted for medical management. PTSD, anxiety - Managed by psychiatry team HTN, uncontrolled - Continue amlodipine 5 mg daily, clonidine 0.2 mg twice a day, lisinopril 10 mg daily - increased to 20 mg daily - Patient on aspirin 325 mg, unable to discuss purpose - Will decrease dose to 81mg - Lipid profile - Elevated BP, lisinopril was decreased by Dr. Gardner. Will monitor for now patient needs to be on 20 mg daily or 10 mg twice daily if clinically indicated. Neck pain, chronic pain - Patient has been on oxycodone 15 mg 3 times a day and reports Suboxone use with the ED physician that he hasn't been taken for 2-3 days - Monitor for withdrawals - Will give patient baclofen for muscle spasms, and Naprosyn as needed until all his medications are completely verified - CIWA withdrawals -Patient's neck pain, cervical pain has improved significantly with baclofen. DM 2 - Continue metformin 1000mg twice a day - hemoglobin A1c 6.0 - Continue to monitor Leukocytosis - Possibly reactive. Repeat CBC Tobacco abuse Alcohol abuse - Counseled - Nicotine patch DVT prop, ambulatory Problem Qualifiers (1) Adjustment disorder: Qualified Codes: F43.23 - Adjustment disorder with mixed anxiety and depressed mood Kerri Aparicio Jul 23, 2017 19:06
[2017-07-23] MEDS: OLANZapine 10 MG TAB PO SCH (20:51)
[2017-07-23] MEDS: REMOVE OLD NICOTINE PATCH T-DERMAL SCH (20:55)
--- NOTE | 2017-07-24 01:37 | EKG ---
Date Performed: 07/22/2017 Time Performed: 13:07:39 PTAGE: 71 years EKG: Sinus rhythm MINIMAL ST DEPRESSION BORDERLINE ECG NO PREVIOUS TRACING DOCTOR: Ilene Gleason Interpretating Date/Time 07/24/2017 01:36:31
[2017-07-24 06:00] VITALS: BP 157/85; PULSE 103; RESP 20; TEMP 98.3; O2SAT 95
[2017-07-24] MEDS: BACLOFEN 10 MG TAB PO SCH ×3 (06:47→20:58)
[2017-07-24] MEDS: KETOCONAZOLE 2% CREAM 15 GM TOPICAL SCH ×2 (09:00→09:01)
[2017-07-24] MEDS: DULoxetine HCl DR 60 MG CAP PO SCH (09:01)
[2017-07-24] MEDS: ASPIRIN EC 325 MG TABEC PO SCH (09:01)
[2017-07-24] MEDS: NICOTINE 21 MG/24 HR PATCH T-DERMAL SCH (09:02)
[2017-07-24] MEDS: ASCORBIC ACID 500 MG TAB PO SCH (09:02)
[2017-07-24] MEDS: metFORMIN HCL 500 MG TAB PO SCH ×2 (09:02→18:00)
[2017-07-24] MEDS: cloNIDine HCL 0.2 MG TAB PO SCH ×2 (09:02→20:42)
[2017-07-24] MEDS: LISINOPRIL 10 MG TAB PO SCH (09:02)
[2017-07-24] MEDS: FAMOTIDINE 20 MG TAB PO SCH ×2 (09:02→20:42)
[2017-07-24] MEDS: amLODIPine BESYLATE 5 MG TAB PO SCH (09:02)
[2017-07-24] MEDS: LISINOPRIL 20 MG TAB PO SCH (09:30)
--- NOTE | 2017-07-24 10:24 | HHI.PR ---
Subjective Remarks Follow-up for neck pain and hypertension Blood pressure still in the 160s, no headache, chest pain or shortness of breath. Neck pain is a lot better but still present. Baclofen is certainly helping. Objective Vitals Vital Signs Date Time Temp Pulse Resp B/P (MAP) Pulse Ox O2 Delivery O2 Flow Rate FiO2 07/24/17 06:00 98.3 103 20 157/85 (109) 95 I/O 07/23/17 07/23/17 07/23/17 07/24/17 07/24/17 07/24/17 07:00 15:00 23:00 07:00 15:00 23:00 Intake Total 570 ml 480 ml 720 ml 1060 ml Balance 570 ml 480 ml 720 ml 1060 ml Intake Oral 570 ml 480 ml 720 ml 1060 ml # Voids 3 3 Result Diagram: 07/21/17 1145 07/22/17 0725 Objective Remarks GENERAL: This is a well-nourished, well-developed patient, in no apparent distress. Posterior cervical area with tightness, no spasms. Mildly tender. CARDIOVASCULAR: Regular rate and rhythm without murmurs, gallops, or rubs. RESPIRATORY: Diminished bases. No wheezes, rales, or rhonchi. GASTROINTESTINAL: Abdomen soft, non-tender, nondistended. Bowel Sounds normoactive x4. NEUROLOGICAL: Awake and alert. Oriented to place, person. Moves all extremities. Ambulating with a walker. A/P Problem List: (1) HTN (hypertension) ICD Code: I10 - Essential (primary) hypertension (2) DM type 2 (diabetes mellitus, type 2) ICD Code: E11.9 - Type 2 diabetes mellitus without complications (3) Tobacco abuse ICD Code: Z72.0 - Tobacco use (4) Chronic post-traumatic stress disorder (PTSD) after combat ICD Code: F43.12 - Post-traumatic stress disorder, chronic (5) Adjustment disorder ICD Code: F43.20 - Adjustment disorder, unspecified Status: Acute Assessment and Plan Patient is a 71-year-old old male with primary medical history of HTN, DM who came into the hospital under [facility] act for psychiatric evaluation. Per review of records, patient presented to the [place] acutely psychotic, states he has not slept in the last week. He is now admitted to inpatient psychiatry unit for further evaluation. Consulted for medical management. PTSD, anxiety - Managed by psychiatry team HTN, uncontrolled - Continue amlodipine 5 mg daily, clonidine 0.2 mg twice a day, blood pressure still uncontrolled, increase lisinopril to 20 mg daily. Continue aspirin low-dose. Neck pain, chronic pain - Patient has been on oxycodone 15 mg 3 times a day and reports Suboxone use with the ED physician that he hasn't been taken for 2-3 days, no signs of withdrawals. Continue baclofen and naproxen, patient appears to be comfortable. DM 2 - Continue metformin 1000mg twice a day - hemoglobin A1c 6.0 - Continue to monitor Leukocytosis - Possibly reactive. No clinical significance, no signs of infection. Tobacco abuse Alcohol abuse - Counseled - Nicotine patch DVT prop, ambulatory We will sign off, please call with questions, follow-up with primary care physician in 2 weeks post discharge. Problem Qualifiers (1) Adjustment disorder: Qualified Codes: F43.23 - Adjustment disorder with mixed anxiety and depressed mood Silverio Gallegos MD Jul 24, 2017 10:24
[2017-07-24 11:15] VITALS: BP 139/70; PULSE 89
[2017-07-24 12:24] LABS: HEMATOCRIT 36.6 % (39.0-51.0); HEMOGLOBIN 12.9 GM/DL (13.0-17.0); MEAN CELL VOLUME 86.9 FL (80.0-100.0); MEAN CORPUSCULAR HEMOGLOBIN 30.8 PG (27.0-34.0); MEAN CORPUSCULAR HGB CONC 35.4 % (32.0-36.0); MEAN PLATELET VOLUME 7.3 FL (7.0-11.0); PLATELET COUNT 214 TH/MM3 (150-450); RED CELL DISTRIBUTION WIDTH 13.8 % (11.6-17.2); WHITE BLOOD COUNT 8.9 TH/MM3 (4.0-11.0)
--- NOTE | 2017-07-24 16:28 | HHI.PYPN ---
Subjective Remarks Patient was seen and case discussed with nursing. When asked about his reason for admission his hallucinations and's statement of wanting to overdose on blood pressure pills patient becomes irritable and defensive. Starts accusing a sister of having made the statements claims that he didn't have any of the symptoms and use is here for medication adjustments. Otherwise no outbursts on the unit. Mental Status Examination Appearance: Appropriate Consciousness: Alert Orientation: Person (refuses further mental status testing) Motor Activity: Other (no motor abnormalities noted) Speech: Unremarkable Language: Adequate Fund of Knowledge: Adequate Attention and Concentration: Easily Distracted Mood: Irritable Affect: Other (restricted) Thought Process & Associations: Circumstantial Thought Content: Delusional Hallucination Type: None (denies AVH) Delusion Type: Paranoid Suicidal Ideation: No Suicidal Plan: No Suicidal Intention: No Homicidal Ideation: No Homicidal Plan: No Homicidal Intention: No Insight: Poor Judgment: Poor Results Labs Test 07/24/17 12:08 White Blood Count 8.9 TH/MM3 Red Blood Count 4.20 MIL/MM3 Hemoglobin 12.9 GM/DL Hematocrit 36.6 % Mean Corpuscular Volume 86.9 FL Mean Corpuscular Hemoglobin 30.8 PG Mean Corpuscular Hemoglobin Concent 35.4 % Red Cell Distribution Width 13.8 % Platelet Count 214 TH/MM3 Mean Platelet Volume 7.3 FL Vitals/IOs Vital Signs Date Time Temp Pulse Resp B/P (MAP) Pulse Ox O2 Delivery O2 Flow Rate FiO2 07/24/17 11:15 89 139/70 (93) 07/24/17 06:00 98.3 20 95 07/21/17 22:03 Room Air Intake and Output 07/24/17 07/24/17 07/25/17 08:00 16:00 00:00 Intake Total 1060 ml Balance 1060 ml Assessment & Plan Problem List: (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 Inpt. Patient will decompensate in a less restrictive setting Pravin Lopez DO Jul 24, 2017 16:28
[2017-07-24 17:55] VITALS: BP 148/70; PULSE 88; RESP 17; TEMP 97.9; O2SAT 94
[2017-07-24] MEDS: OLANZapine 10 MG TAB PO SCH (20:42)
[2017-07-24] MEDS: REMOVE OLD NICOTINE PATCH T-DERMAL SCH (21:00)
[2017-07-25 06:21] VITALS: BP 167/79; PULSE 115; RESP 16; TEMP 98.1; O2SAT 93
[2017-07-25] MEDS: BACLOFEN 10 MG TAB PO SCH ×3 (06:32→20:33)
[2017-07-25] MEDS: metFORMIN HCL 500 MG TAB PO SCH ×2 (08:14→17:26)
[2017-07-25] MEDS: FAMOTIDINE 20 MG TAB PO SCH ×2 (08:15→20:33)
[2017-07-25] MEDS: cloNIDine HCL 0.2 MG TAB PO SCH ×2 (08:15→20:33)
[2017-07-25] MEDS: ASCORBIC ACID 500 MG TAB PO SCH (08:15)
[2017-07-25] MEDS: NICOTINE 21 MG/24 HR PATCH T-DERMAL SCH (08:15)
[2017-07-25] MEDS: amLODIPine BESYLATE 5 MG TAB PO SCH (08:15)
[2017-07-25] MEDS: ASPIRIN EC 325 MG TABEC PO SCH (08:15)
[2017-07-25] MEDS: DULoxetine HCl DR 60 MG CAP PO SCH (08:15)
[2017-07-25] MEDS: LISINOPRIL 20 MG TAB PO SCH (08:15)
[2017-07-25] MEDS: KETOCONAZOLE 2% CREAM 15 GM TOPICAL SCH (08:18)
--- NOTE | 2017-07-25 10:53 | HHI.PYPN ---
Subjective Remarks Patient was seen and case discussed with nursing. Patient is perseverant on back pain this morning. He had an episode of incontinence last night or urinated on the floor. He does not seem to remember this incident. Per nursing he slept well. Continues to have poor insight into his admission and continues to deny suicidal ideation. Mood is less irritable. Mental Status Examination Appearance: Appropriate Consciousness: Alert Orientation: Person (refuses further mental status testing) Motor Activity: Other (no motor abnormalities noted) Speech: Unremarkable Language: Adequate Fund of Knowledge: Adequate Attention and Concentration: Easily Distracted Mood: Irritable (less so) Affect: Other (restricted) Thought Process & Associations: Circumstantial Thought Content: Delusional Hallucination Type: None (denies AVH) Delusion Type: Paranoid Suicidal Ideation: No Suicidal Plan: No Suicidal Intention: No Homicidal Ideation: No Homicidal Plan: No Homicidal Intention: No Insight: Poor Judgment: Poor Results Labs Test 07/24/17 12:08 White Blood Count 8.9 TH/MM3 Red Blood Count 4.20 MIL/MM3 Hemoglobin 12.9 GM/DL Hematocrit 36.6 % Mean Corpuscular Volume 86.9 FL Mean Corpuscular Hemoglobin 30.8 PG Mean Corpuscular Hemoglobin Concent 35.4 % Red Cell Distribution Width 13.8 % Platelet Count 214 TH/MM3 Mean Platelet Volume 7.3 FL Vitals/IOs Vital Signs Date Time Temp Pulse Resp B/P (MAP) Pulse Ox O2 Delivery O2 Flow Rate FiO2 07/25/17 06:21 98.1 115 16 167/79 (108) 93 07/21/17 22:03 Room Air Intake and Output 07/25/17 07/25/17 07/26/17 08:00 16:00 00:00 Intake Total 0 ml 360 ml Balance 0 ml 360 ml Assessment & Plan Problem List: (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 Inpt. Patient will decompensate in a less restrictive setting Pravin Lopez DO Jul 25, 2017 10:53
--- NOTE | 2017-07-25 12:55 | HHI.PR ---
Subjective Subjective Comments I came to evaluate patient, but nurse states currently in mass. I will return at a later time to evaluate Active Medications Current Medications Medications (Trade) Dose Ordered Sig/Smith Route Start Time Stop Time Status Last Admin (Atarax) 50 mg Q6H PRN PO 07/21/17 23:15 07/22/17 21:25 (Cogentin) 1 mg Q12H PRN PO 07/21/17 23:15 (Benadryl) 50 mg HS PRN PO 07/21/17 23:15 (Tylenol) 650 mg Q4H PRN PO 07/21/17 23:15 07/23/17 20:53 (Milk Of Magnesia Liq) 30 ml DAILY PRN PO 07/21/17 23:15 07/22/17 15:48 (Mag-Al Plus Susp Liq) 30 ml Q6H PRN PO 07/21/17 23:15 07/22/17 15:48 (Habitrol 21 Mg Patch.24 Hr) 1 patch DAILY T-DERMAL 07/22/17 09:00 07/25/17 08:15 Miscellaneous Information 1 HS T-DERMAL 07/22/17 21:00 (Norvasc) 5 mg DAILY PO 07/21/17 23:15 07/25/17 08:15 (Catapres) 0.2 mg BID PO 07/22/17 09:00 07/25/17 08:15 (Nizoral 2% Cream) APPLY TO AFFECTED AREA... DAILY TOPICAL 07/22/17 09:00 07/23/17 08:19 (Glucophage) 1,000 mg BIDPC PO 07/22/17 09:00 07/25/17 08:14 (Vitamin C) 500 mg DAILY PO 07/22/17 09:00 07/25/17 08:15 (Romazicon Inj) 0.2 mg Q1M PRN IV PUSH 07/22/17 13:45 (Ativan) 1 mg Q4H PRN PO 07/22/17 13:45 07/23/17 13:55 (Ativan Inj) 1 mg Q4H PRN IV PUSH 07/22/17 13:45 (Ativan) 2 mg Q2H PRN PO 07/22/17 13:45 (Ativan Inj) 2 mg Q2H PRN IV PUSH 07/22/17 13:45 (Ativan Inj) 2 mg Q1H PRN IV PUSH 07/22/17 13:45 (Ativan Inj) 2 mg Q15M PRN IV PUSH 07/22/17 13:45 (ZyPREXA) 10 mg HS PO 07/22/17 21:00 07/24/17 20:42 (Cymbalta Dr) 60 mg DAILY PO 07/23/17 09:00 07/25/17 08:15 Patient Own Medication PT OWN MED: CARBOXYMETHYCELLULOSE... Q4H PRN EACH EYE 07/22/17 13:45 Future Hold (Ecotrin Ec) 81 mg DAILY PO 07/23/17 09:00 07/25/17 08:15 (Lioresal) 10 mg Q8HR PO 07/22/17 22:00 07/25/17 06:32 (Naprosyn) 250 mg Q6H PRN PO 07/22/17 18:30 (Pepcid) 20 mg BID PO 07/22/17 21:00 07/25/17 08:15 (Prinivil) 20 mg DAILY PO 07/24/17 09:30 07/25/17 08:15 Allergies Allergies Coded Allergies Sulfa (Sulfonamide Antibiotics) (Unverified Allergy, Intermediate, RASH, ) Exam I&O / VS 07/25/17 07/25/17 07/26/17 15:00 23:00 07:00 Intake Total 720 ml Balance 720 ml Intake Oral 720 ml Vital Signs Date Time Temp Pulse Resp B/P (MAP) Pulse Ox O2 Delivery O2 Flow Rate FiO2 07/25/17 06:21 98.1 115 16 167/79 (108) 93 07/24/17 17:55 97.9 88 17 148/70 (96) 94 Billy Bautista MD PhD Jul 25, 2017 12:55
--- NOTE | 2017-07-25 13:54 | HHI.PR ---
Subjective Remarks Reconsult for back pain, neck pain, 1 urinary incontinence. Patient seen and examined today sitting in a chair. Reports he woke up today with the back pain but it has improved now. States he ambulates with a walker and he is doing fine. Discuss with patient that he has some pain medication on board discuss and explained Naprosyn use and also baclofen use. Reports cervical pain has significantly improved with use of baclofen. States he is feeling a lot better. Denies any headaches, dizziness, chest pain, palpitations. Denies any fevers, chills, nausea, vomiting, diarrhea. Objective Vitals Vital Signs Date Time Temp Pulse Resp B/P (MAP) Pulse Ox O2 Delivery O2 Flow Rate FiO2 07/25/17 06:21 98.1 115 16 167/79 (108) 93 07/24/17 17:55 97.9 88 17 148/70 (96) 94 I/O 07/24/17 07/24/17 07/24/17 07/25/17 07/25/17 07/25/17 07:00 15:00 23:00 07:00 15:00 23:00 Intake Total 1060 ml 960 ml 0 ml 720 ml Balance 1060 ml 960 ml 0 ml 720 ml Intake Oral 1060 ml 960 ml 0 ml 720 ml # Voids 3 1 2 Result Diagram: 07/24/17 1208 07/22/17 0725 Objective Remarks GENERAL: This is a well-nourished, well-developed patient, in no apparent distress. SKIN: Warm and dry. HEENT: Normocephalic. Pupils equal round and reactive. Nose without bleeding. Airway patent. NECK: Trachea midline. CARDIOVASCULAR: Regular rate and rhythm without murmurs, gallops, or rubs. RESPIRATORY: Diminished bases. No wheezes, rales, or rhonchi. GASTROINTESTINAL: Abdomen soft, non-tender, nondistended. Bowel Sounds normoactive x4. MUSCULOSKELETAL: Extremities without clubbing, cyanosis, or edema. NEUROLOGICAL: Awake and alert. Oriented to place, person. Moves all extremities. Normal speech. A/P Problem List: (1) HTN (hypertension) ICD Code: I10 - Essential (primary) hypertension (2) DM type 2 (diabetes mellitus, type 2) ICD Code: E11.9 - Type 2 diabetes mellitus without complications (3) Tobacco abuse ICD Code: Z72.0 - Tobacco use (4) Chronic post-traumatic stress disorder (PTSD) after combat ICD Code: F43.12 - Post-traumatic stress disorder, chronic (5) Adjustment disorder ICD Code: F43.20 - Adjustment disorder, unspecified Status: Acute Assessment and Plan Patient is a 71-year-old old male with primary medical history of HTN, DM who came into the hospital under [facility] act for psychiatric evaluation. Per review of records, patient presented to the [place] acutely psychotic, states he has not slept in the last week. He is now admitted to inpatient psychiatry unit for further evaluation. Consulted for medical management. PTSD, anxiety - Managed by psychiatry team Episode of incontinence x1 - Reported episode of incontinence when he woke up this morning. Possibly secondary to confusion - No reported. Of incontinence throughout the day HTN, uncontrolled - Continue amlodipine 5 mg daily, clonidine 0.2 mg twice a day, lisinopril 10 mg daily - increased to 20 mg daily - Patient on aspirin 325 mg, unable to discuss purpose - Will decrease dose to 81mg - Lipid profile within normal - Continues to have elevations in BP. Will increase dose of lisinopril to 30 mg daily Neck pain, chronic pain Back pain, chronic - Patient has been on oxycodone 15 mg 3 times a day and reports Suboxone use with the ED physician that he hasn't been taken for 2-3 days - Monitor for withdrawals - Will give patient baclofen for muscle spasms, and Naprosyn as needed until all his medications are completely verified - CIWA withdrawals - Patient's neck pain, cervical pain has improved significantly with baclofen. - Encourage Naprosyn use for back pain if needed. Discuss and explained with patient. DM 2 - Continue metformin 1000mg twice a day - hemoglobin A1c 6.0 - Continue to monitor Leukocytosis - Possibly reactive. - Improved. WBC 12.3 --> 8.9 Tobacco abuse Alcohol abuse - Counseled - Nicotine patch DVT prop, ambulatory Stable from Hospitalist standpoint. We will sign off if BP improves. Reconsult as needed. Problem Qualifiers (1) Adjustment disorder: Qualified Codes: F43.23 - Adjustment disorder with mixed anxiety and depressed mood Kerri Aparicio Jul 25, 2017 13:54
[2017-07-25] MEDS: NAPROXEN 250 MG TAB PO PRN (17:26)
[2017-07-25 18:00] VITALS: BP 162/79; PULSE 90; RESP 18; TEMP 97.9; O2SAT 95
[2017-07-25] MEDS: OLANZapine 10 MG TAB PO SCH (20:33)
[2017-07-25] MEDS: ALUMINUM/MAGNESIUM/SIMETH 30 ML CUP PO PRN (20:57)
[2017-07-25] MEDS: REMOVE OLD NICOTINE PATCH T-DERMAL SCH (21:00)
[2017-07-26] MEDS: BACLOFEN 10 MG TAB PO SCH ×3 (05:29→21:16)
[2017-07-26 06:08] VITALS: BP 152/73; PULSE 82; RESP 16; TEMP 97.6; O2SAT 95
[2017-07-26] MEDS: metFORMIN HCL 500 MG TAB PO SCH ×2 (09:20→17:28)
[2017-07-26] MEDS: NICOTINE 21 MG/24 HR PATCH T-DERMAL SCH (09:20)
[2017-07-26] MEDS: LISINOPRIL 10 MG TAB PO SCH (09:21)
[2017-07-26] MEDS: ASPIRIN EC 325 MG TABEC PO SCH (09:21)
[2017-07-26] MEDS: FAMOTIDINE 20 MG TAB PO SCH ×2 (09:21→21:16)
[2017-07-26] MEDS: ASCORBIC ACID 500 MG TAB PO SCH (09:21)
[2017-07-26] MEDS: KETOCONAZOLE 2% CREAM 15 GM TOPICAL SCH (09:22)
[2017-07-26] MEDS: DULoxetine HCl DR 60 MG CAP PO SCH (09:22)
[2017-07-26] MEDS: cloNIDine HCL 0.2 MG TAB PO SCH ×2 (09:22→21:16)
--- NOTE | 2017-07-26 10:36 | HHI.PR ---
Subjective Remarks Follow-up visit chronic back pain, chronic neck pain, HTN. Patient seen and examined today. Reports cervical pain and back pain has improved with pain medication use. Discuss with patient elevated BP possibly related to pain. Patient states that his BP is probably elevated because he is not on his regular dose of medication. Otherwise, denies SOB/ dyspnea. Denies chest pain , palpitations, headaches, dizziness. Denies fevers, chills, n/v/d. Denies dysuria. Objective Vitals Vital Signs Date Time Temp Pulse Resp B/P (MAP) Pulse Ox O2 Delivery O2 Flow Rate FiO2 07/26/17 06:08 97.6 82 16 152/73 (99) 95 07/25/17 18:00 97.9 90 18 162/79 (106) 95 I/O 07/25/17 07/25/17 07/25/17 07/26/17 07/26/17 07/26/17 07:00 15:00 23:00 07:00 15:00 23:00 Intake Total 0 ml 720 ml 360 ml 360 ml Balance 0 ml 720 ml 360 ml 360 ml Intake Oral 0 ml 720 ml 360 ml 360 ml # Voids 2 2 1 Result Diagram: 07/24/17 1208 07/22/17 0725 Objective Remarks GENERAL: This is a well-nourished, well-developed patient, in no apparent distress. SKIN: Warm and dry. HEENT: Normocephalic. Pupils equal round and reactive. Nose without bleeding. Airway patent. NECK: Trachea midline. CARDIOVASCULAR: Regular rate and rhythm without murmurs, gallops, or rubs. RESPIRATORY: Diminished bases. No wheezes, rales, or rhonchi. GASTROINTESTINAL: Abdomen soft, non-tender, nondistended. Bowel Sounds normoactive x4. MUSCULOSKELETAL: Extremities without clubbing, cyanosis, or edema. NEUROLOGICAL: Awake and alert. Oriented to place, person. Moves all extremities. Normal speech. A/P Problem List: (1) HTN (hypertension) ICD Code: I10 - Essential (primary) hypertension (2) DM type 2 (diabetes mellitus, type 2) ICD Code: E11.9 - Type 2 diabetes mellitus without complications (3) Tobacco abuse ICD Code: Z72.0 - Tobacco use (4) Chronic post-traumatic stress disorder (PTSD) after combat ICD Code: F43.12 - Post-traumatic stress disorder, chronic (5) Adjustment disorder ICD Code: F43.20 - Adjustment disorder, unspecified Status: Acute Assessment and Plan Patient is a 71-year-old old male with primary medical history of HTN, DM who came into the hospital under [facility] act for psychiatric evaluation. Per review of records, patient presented to the [place] acutely psychotic, states he has not slept in the last week. He is now admitted to inpatient psychiatry unit for further evaluation. Consulted for medical management. PTSD, anxiety - Managed by psychiatry team Episode of incontinence x1 - Reported episode of incontinence when he woke up this morning. Possibly secondary to confusion - No reported. Of incontinence throughout the day HTN, uncontrolled - clonidine 0.2 mg twice a day, Increase dose of lisinopril to 30 mg daily, increase amlodipine to 10 mg daily - Aspirin 81 mg daily - Lipid profile within normal - Monitor BP trend Neck pain, chronic pain Back pain, chronic - Patient has been on oxycodone 15 mg 3 times a day and reports Suboxone use with the ED physician that he hasn't been taken for 2-3 days - Monitor for withdrawals - Will give patient baclofen for muscle spasms, and Naprosyn as needed until all his medications are completely verified - CIWA withdrawals - Patient's neck pain, cervical pain has improved significantly with baclofen. - Encourage Naprosyn use for back pain if needed. Discuss and explained with patient. DM 2 - Continue metformin 1000mg twice a day - hemoglobin A1c 6.0 - Continue to monitor Leukocytosis - Possibly reactive. - Improved. WBC 12.3 --> 8.9 Tobacco abuse Alcohol abuse - Counseled - Nicotine patch DVT prop, ambulatory Stable from Hospitalist standpoint. We will sign off if BP improves. Reconsult as needed. Problem Qualifiers (1) Adjustment disorder: Qualified Codes: F43.23 - Adjustment disorder with mixed anxiety and depressed mood Kerri Aparicio Jul 26, 2017 10:36
--- NOTE | 2017-07-26 12:37 | HHI.PYPN ---
Subjective Remarks Patient seen in dayroom with floor staff, chart review, patient discussed with nurse. somewhat calmer today less intrusive and intense. Continue somewhat confused and disorganized. Compliant medications. For now continue treatment. Continue to work with family related to placement Review of Systems Except as stated in HPI: all other systems reviewed are Neg Mental Status Examination Appearance: Appropriate Consciousness: Alert Orientation: Person (refuses further mental status testing) Motor Activity: Other (no motor abnormalities noted) Speech: Unremarkable Language: Adequate Fund of Knowledge: Adequate Attention and Concentration: Easily Distracted Mood: Irritable (less so) Affect: Other (restricted) Thought Process & Associations: Circumstantial Thought Content: Delusional Hallucination Type: None (denies AVH) Delusion Type: Paranoid Suicidal Ideation: No Suicidal Plan: No Suicidal Intention: No Homicidal Ideation: No Homicidal Plan: No Homicidal Intention: No Insight: Poor Judgment: Poor Results Vitals/IOs Vital Signs Date Time Temp Pulse Resp B/P (MAP) Pulse Ox O2 Delivery O2 Flow Rate FiO2 07/26/17 06:08 97.6 82 16 152/73 (99) 95 Intake and Output 07/26/17 07/26/17 07/27/17 08:00 16:00 00:00 Intake Total 360 ml 240 ml Balance 360 ml 240 ml Assessment & Plan Problem List: (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 He is more, compliant. No behavior problems noted. For now continue treatment Justification for Cont. Inpt. At this time patient decompensated placed in a lower level of care Discharge Planning Placement remains somewhat problematic Segun Gardner MD Jul 26, 2017 12:37
[2017-07-26 18:20] VITALS: BP 142/73; PULSE 79; RESP 16; TEMP 97.8; O2SAT 96
[2017-07-26] MEDS: ACETAMINOPHEN 325 MG TAB PO PRN (18:33)
--- NOTE | 2017-07-26 20:18 | MB ---
cc: EBENEZER CERRATO DATE OF CONSULTATION 07/26/2017 REASON FOR CONSULTATION Possible dementia. HISTORY OF PRESENT ILLNESS Mr. Lehman is a 71-year-old man who is admitted to [facility] under [facility] with psychosis with agitation with suicidal ideation as well auditory and visual hallucinations. He states he has not been able to sleep for a week or so. He does drink alcohol daily, three to four beers every day as well. The patient denies any memory difficulties. NEUROLOGIC EXAMINATION VITAL SIGNS: Blood pressure is 160/73, pulse 82, respiratory rate is 16, temperature 97.6 degrees. Higher cortical functions, he is alert, oriented x3. He recalls 3/3 objects in 3 minutes. His remote memory is intact. Calculations are normal. Speech is fluent with no paraphasic errors. Naming ability is within normal limits. He follows commands well. He has no frontal release signs. Cranial nerves II-XII normal. Motor exam reveals 5/5 strength of all groups in both upper and lower extremities. Reflexes symmetric. His gait is normal. LABORATORY DATA White count is 8900. Hemoglobin 12.9, hematocrit 36.6%, platelet count 214,000. Sodium is 135, potassium 3.6, chloride is 96, CO2 30, BUN is 5, creatinine 0.94, GFR 79, glucose 110. AST 15, ALT 15. Cholesterol 142, LDL 70. Tox screen negative. Urinalysis the pH is 7.0, specific gravity 1.005. IMPRESSION The patient's mental status examination appears to be within normal limits in terms of memory processing at this time. No definite signs of dementia, however, would recommend further evaluation with a CT scan of the brain as well as EEG and we will obtain additional labs including a thyroid panel and B12 level. MD CHERRY Alanis/MIRELA /4:09 PM /8:03 PM
[2017-07-26] MEDS: REMOVE OLD NICOTINE PATCH T-DERMAL SCH (21:00)
[2017-07-26] MEDS: OLANZapine 10 MG TAB PO SCH (21:16)
--- NOTE | 2017-07-27 01:19 | RADRPT ---
EXAM DATE/TIME: 07/27/2017 01:01 [facility] COMPARISON: No previous studies available for comparison. INDICATIONS : Encephalopathy. RADIATION DOSE: 69.15 CTDIvol (mGy) MEDICAL HISTORY : Cardiovascular disease. Hypertension. SURGICAL HISTORY : None. ENCOUNTER: Initial ACUITY: 1 day PAIN SCALE: 0/10 LOCATION: cranial TECHNIQUE: Multiple contiguous axial images were obtained of the head. Using automated exposure control and adj ustment of the mA and/or kV according to patient size, radiation dose was kept as low as reasonably a chievable to obtain optimal diagnostic quality images. DICOM format image data is available electro nically for review and comparison. FINDINGS: CEREBRUM: The ventricles are normal for age. No evidence of midline shift, mass lesion, hemorrhage or acute in farction. No extra-axial fluid collections are seen. POSTERIOR FOSSA: The cerebellum and brainstem are intact. The 4th ventricle is midline. The cerebellopontine angle i s unremarkable. EXTRACRANIAL: The visualized portion of the orbits is intact. SKULL: The calvaria is intact. No evidence of skull fracture. CONCLUSION: Moderate atrophic change with no evidence of hemorrhage or mass effect. Willian Rivas MD on July 27, 2017 at 1:13 Board Certified Radiologist. This report was verified electronically.
[2017-07-27] MEDS: BACLOFEN 10 MG TAB PO SCH ×2 (06:21→14:14)
[2017-07-27] MEDS: DULoxetine HCl DR 60 MG CAP PO SCH (08:55)
[2017-07-27] MEDS: ASCORBIC ACID 500 MG TAB PO SCH (08:55)
[2017-07-27] MEDS: cloNIDine HCL 0.2 MG TAB PO SCH (08:55)
[2017-07-27] MEDS: metFORMIN HCL 500 MG TAB PO SCH (08:56)
[2017-07-27] MEDS: FAMOTIDINE 20 MG TAB PO SCH (08:56)
[2017-07-27] MEDS: KETOCONAZOLE 2% CREAM 15 GM TOPICAL SCH (08:57)
[2017-07-27] MEDS: NICOTINE 21 MG/24 HR PATCH T-DERMAL SCH (08:57)
[2017-07-27] MEDS: LISINOPRIL 10 MG TAB PO SCH (08:57)
[2017-07-27] MEDS: ASPIRIN EC 325 MG TABEC PO SCH (09:02)
[2017-07-27] MEDS ORDERED: ASPI325T33 PO (10:41)
[2017-07-27] MEDS ORDERED: LISI30TA4 PO (10:41)
[2017-07-27] MEDS ORDERED: FAMO20TA2 PO (10:41)
[2017-07-27] MEDS ORDERED: BACL10TA PO (10:41)
[2017-07-27] MEDS ORDERED: AMLO5CAP PO (10:41)
[2017-07-27] MEDS ORDERED: AMLO10 PO (10:41)
[2017-07-27] MEDS ORDERED: KETO2CRE TOPICAL (10:41)
[2017-07-27] MEDS ORDERED: ASCO500T PO (10:41)
[2017-07-27] MEDS ORDERED: DULO1CAP3 PO (10:41)
[2017-07-27] MEDS ORDERED: CLON0.2T PO (10:41)
[2017-07-27] MEDS ORDERED: OLAN10TA PO (10:41)
[2017-07-27] MEDS ORDERED: GLUC1000 PO (10:41)
--- NOTE | 2017-07-27 10:52 | HHI.DS ---
Psychiatry Discharge Summary Inpatient Psychiatric care?: Yes Advance Directive: No Reason Not Provided: SPOKE WITH PATIENT ABOUT IT Mental Health AdvanceDirective: No Health Care Proxy: No Admission Admission Date Jul 21, 2017 at 22:38 Admission Diagnosis: (1) History of substance use disorder ICD Code: Z87.898 - Personal history of other specified conditions (2) Brief psychotic disorder ICD Code: F23 - Brief psychotic disorder (3) Chronic post-traumatic stress disorder (PTSD) after combat ICD Code: F43.12 - Post-traumatic stress disorder, chronic Brief History From Dr. Gardner's H&P: Patient is a 71-year-old [place] who has seen combat and "killed people" [facility] under [facility] at 0900 hrs. that document reviewed and agreed with stating presents to clinic floridly psychotic and agitated states he has not slept or eaten in one week. The states "I'm going to go home and take all my blood pressure pills so I can go into a coma" he reports that he was prescribed Suboxone by and outside non-[facility] provider. Last dose was Wednesdays . He is drinking 3-4 beers every day is expressing visual and auditory hallucinations states "he is seeing soldiers in the house" and believes "there is a virus running through his body" patient seen screened in the ED urine toxicology negative blood alcohol level negative. 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 He states the problem is she has a slept in over one week. He did not mention voices or visions to me. Did not mention his alcohol use. He is vague about dreams flashbacks or eversion behaviors. Is markedly perseverative intense is she is rapid and pressured. While we are speaking his sister are brought joined us her phone number [phone]. She states she is concerned about the multiplication of medications he is taking and the need to get some type of a residential place to help him detox stabilizes medications be kept safe. Patient states he lives in a [facility] in the [facility]. That is 100% disabled. He states he has been in the past that he has a daughter and a granddaughter. The sister states neither one is very high functioning. At this time patient does meet criteria for involuntary psychiatric hospitalization I'll do first opinion request second opinion. With the hospitalist consult was also. Because of this vague but important history of alcohol and opiate misuse no place patient on the [facility] protocol. We will discontinue his trazodone will start him on Zyprexa 10 mg at bedtime we'll continue his Cymbalta. And his other medical medications. Until the hospitalist can make her assessment. We also need to contact the [facility] system to see what other services this gentleman might be available for On my examination today, 07/23: Patient seen and examined with nurse. Chart reviewed. Case discussed with nursing staff. On my examination today, the patient is quite paranoid, somewhat limiting the history. When I endeavor to ask about aspects of his history, for example, he tells me "it's all on the record" and "the medical record has it all." Towards the end of our interaction he will only repeat "My name is Chaitanya Lehman, social security number [id number]." Patient says that he came into the [facility] clinic because he was in opiate withdrawal. He denies any SI or HI but seems unreliable to contract for safety. He complains of poor sleep. He refuses any sort of mental status testing. Psychiatric interview is limited by paranoia as I said. No physical complaints. Past psychiatric history: The patient reports that he follows with Dr. Richardson. He does admit to previous psychiatric admissions but will not tell me where or when. He denies any history of suicide attempts. He won't tell me what his psychiatric diagnosis is, if any. Family history: Patient declines to respond saying only "my name is Chaitanya Lehman." Chemical dependency history: The patient reports a history of opiate use issues , and I see from Dr. Gardner's note that he may have a history of alcohol use problems. Social history: The patient reports that he had been living alone in the [facility]. He had previously had a pet dog who he had to put down. He has a daughter, age 45, who reportedly works for a business called [id number]. Tobacco Use In Past 30 Days: No Tobacco Past 30 Days Alcohol Use: Never Hospital Course Patient's hospital course was uneventful, he showed cooperation albeit with some resistance initially. However he rapidly calm down. Showing cooperation with the staff and with the milieu. Seen today continues to denies suicidality homicidality voices or visions. There continues some restrictive components was behavior but that is understandable. This time patient along with criteria for acute inpatient psychiatric hospitalization. Thus patient be discharged today to himself Rx 1 month to follow-up with the outpatient [facility] clinic in [facility] Results Blood Pressure 142 / 73 Vital Signs Date Time Temp Pulse Resp B/P (MAP) Pulse Ox O2 Delivery O2 Flow Rate FiO2 07/26/17 18:20 97.8 79 16 142/73 (96) 96 Laboratory Tests Test 07/24/17 12:08 07/26/17 16:55 Red Blood Count 4.20 MIL/MM3 (4.50-5.90) Hemoglobin 12.9 GM/DL (13.0-17.0) Hematocrit 36.6 % (39.0-51.0) Laboratory Results Test 07/22/17 07:25 Cholesterol Level 142 MG/DL (120-200) HDL Cholesterol 56.4 MG/DL (40.0-60.0) Hemoglobin A1c 6.0 % (4.3-6.0) LDL Cholesterol 70 MG/DL (0-99) Triglycerides Level 78 MG/DL (42-150) Summary of Procedures None done Imaging Last Impressions Head CT 07/27/17 0000 Signed Impressions: Service Date/Time: Thursday, July 27, 2017 01:01 - CONCLUSION: Moderate atrophic change with no evidence of hemorrhage or mass effect. Willian Rivas MD Pending results at discharge: No Medications # of Antipsychotic meds at D/C: 1 Approp Antipsych med options 1 - Minimum of three failed multiple trials of monotherapy. 2 - Documented plan to taper to monotherapy due to previous use of multiple meds OR cross-taper in progress at D/C. 3 - Documentation of augmentation of Clozapine. 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 combat Diagnosis: Principal ICD Code: F43.12 - Post-traumatic stress disorder, chronic Pt Condition on Discharge: Stable Discharge Disposition: Discharge Home Discharge Instructions Diet Instructions: As Tolerated, No Restrictions Activities you can perform: Regular-No Restrictions Scheduled Appointment: [facility] Discharge Time > 30 minutes Mental Status Examination Appearance: Appropriate Consciousness: Alert Orientation: Person (refuses further mental status testing) Motor Activity: Other (no motor abnormalities noted) Speech: Unremarkable Language: Adequate Fund of Knowledge: Adequate Attention and Concentration: Easily Distracted Mood: Irritable (less so) Affect: Other (restricted) Thought Process & Associations: Circumstantial Thought Content: Delusional Hallucination Type: None (denies AVH) Delusion Type: Paranoid Suicidal Ideation: No Suicidal Plan: No Suicidal Intention: No Homicidal Ideation: No Homicidal Plan: No Homicidal Intention: No Insight: Poor Judgment: Poor Discharge/Advance Care Plan Health Problems: (1) Brief psychotic disorder (2) Chronic post-traumatic stress disorder (PTSD) after combat (3) History of substance use disorder Goals to promote your health * To prevent worsening of your condition and complications * To maintain your health at the optimal level Directions to meet your goals Take your medications as prescribed Follow your dietary instruction Follow activity as directed Keep your appointments as scheduled Take your immunizations and boosters as scheduled If your symptoms worsen call your PCP, if no PCP go to Urgent Care Center or Emergency Room For 28/12 questions related to your inpatient stay or results of tests pending at discharge, please contact Dr. Segun Gardner at Smoking is Dangerous to Your Health. Avoid second hand smoking Segun Gardner MD Jul 27, 2017 10:52
[2017-07-27] MEDS: NAPROXEN 250 MG TAB PO PRN (14:00)
--- NOTE | 2017-07-27 14:03 | PD.TTN ---
Patient Problems 1. Discharge planning 2. Medication compliance 3. Knowledge deficit 4. Lack of coping skills Progress Toward Goals Provider Present: Dr. Maninder Gardner Provider Input: 07/26/17 is adjusting his meds, he appears better already Psychiatric Counselors Present: Jo Reese LCSW Psych Therapist Input: 07/26/17 less hallucinations, wants to go home, lives alone, neglects self care, if home will benefit from [facility] Group Spec/RT/OT/DICKSON Present: Jayson Cardona OT Group Spec/RT/OT/DICKSON Input: 07/26/17 attends select groups and discharge focused Jo Reese LCSW Jul 27, 2017 14:02
== END 2017-07-27 15:35 | disposition home or self-care (01) | DRG 885 ==
LOC: NEPJ 11:09 → NEDA 22:38 → H250 23:11
PROVIDERS: ADMIT Psychiatry & Neurology Psychiatry; ATTEND Psychiatry & Neurology Psychiatry
DX: F23 Brief psychotic disorder (principal); E11.9 Type 2 diabetes mellitus without complications; R45.851 Suicidal ideations; I10 Essential (primary) hypertension; D72.829 Elevated white blood cell count, unspecified; F11.10 Opioid abuse, uncomplicated; F43.12 Post-traumatic stress disorder, chronic; F43.23 Adjustment disorder with mixed anxiety and depressed mood; I25.10 Atherosclerotic heart disease of native coronary artery without angina pectoris; M54.2 Cervicalgia; G89.29 Other chronic pain; M62.838 Other muscle spasm; R32 Unspecified urinary incontinence; M19.90 Unspecified osteoarthritis, unspecified site; M54.9 Dorsalgia, unspecified; F10.10 Alcohol abuse, uncomplicated; F17.210 Nicotine dependence, cigarettes, uncomplicated; Y90.0 Blood alcohol level of less than 20 mg/100 ml; Z79.84 Long term (current) use of oral hypoglycemic drugs; Z88.2 Allergy status to sulfonamides
CPT/HCPCS: 70450; 80048; 80053; 80061; 80307; 81001; 82607; 83036; 84443; 85025; 85027; 93005